=== PATIENT | male | born 1990 | race African-American/Black ===

== ENCOUNTER 2021-07-27 21:27 | Inpatient (IN) | payer MEDICAID, SELFPAY ==
[~2021-07-27] VITALS: Ht 180.3 cm; Wt 90.7 kg
[2021-07-27 21:28] VITALS: BP 98/68
--- NOTE | 2021-07-27 21:30 | NUR ---
BIBA PADILLAH C/O WEAKNESS, NAUSEA, NECK PAIN FOR 2 DAYS.RECENTLY DX WIT PNEUMONIA. PT DENIES PAIN. C/O WEAKNESS. ATTACHED TO CM = SR. O2 SAT = 98%
--- NOTE | 2021-07-27 21:31 | NUR ---
PT LEYLA ALS. TAKEN TO BED 1
--- NOTE | 2021-07-27 22:08 | NUR ---
DR WERNER AT BEDSIDE FOR EXAM
--- NOTE | 2021-07-27 22:45 | NUR ---
CONSENT FOR CT ANGIO OBTAINED
[2021-07-27 23:06] LABS: BASOPHILS % (AUTO) 0.8 % (0.0-2.0); EOSINOPHILS % (AUTO) 0.9 % (0.0-4.0); HEMOGLOBIN 16.1 g/dL (12.0-18.0); LYMPHOCYTES # (AUTO) 1.6 K/uL (2.0-11.5); LYMPHOCYTES % (AUTO) 33.8 % (20.5-51.1); MEAN CORPUSCULAR HEMOGLOBIN 28 pg (27-31); MEAN CORPUSCULAR HGB CONC 34 g/dL (33-37); MEAN CORPUSCULAR VOLUME 84.5 fL (80-94); MONOCYTES # (AUTO) 0.5 K/uL (0.8-1.0); MONOCYTES % (AUTO) 9.8 % (1.7-9.3); NEUTROPHILS # (AUTO) 2.6 K/uL (1.8-7.7); NEUTROPHILS % (AUTO) 54.7 % (42.2-75.2); PLATELET COUNT (AUTO) 263 K/uL (140-450); RED BLOOD CELL COUNT(AUTO) 5.69 MIL/uL (4.20-6.10); RED CELL DISTRIBUTION WIDTH 14.6 % (11.6-13.7); WHITE BLOOD COUNT (AUTO) 4.8 K/uL (4.8-10.8)
--- NOTE | 2021-07-27 23:14 | NUR ---
NICOLAS SWAB OBTAINED AND SENT TO LAB
[2021-07-27 23:31] LABS: ALBUMIN 3.1 g/dL (3.4-5.0); ANION GAP 16.2 (8-16); CARBON DIOXIDE 23.9 mmol/L (21-32); CREATININE 1.9 mg/dL (0.6-1.3); POTASSIUM 4.1 mmol/L (3.5-5.1); TOTAL BILIRUBIN 0.9 mg/dL (0.0-1.0)
--- NOTE | 2021-07-27 23:42 | NUR ---
UA OBTAINED AND SENT TO LAB
[2021-07-27] MEDS ORDERED: FUROSEMIDE 40 MG/4 ML VIAL IVP ONE (23:50)
[2021-07-27 23:54] LABS: BLOOD, URINE 2+ (NEGATIVE); COLOR,URINE YELLOW (YELLOW); UGLUCOSE 2+ (NEGATIVE)
[2021-07-28 00:07] LABS: RBC,URINE 20-50 /HPF (0-5); WBC,URINE 20-60 /HPF (0-5)
[2021-07-28 00:10] LABS: CREATINE KINASE MB 1.5 ng/mL (0-3.6)
--- NOTE | 2021-07-28 00:36 | NUR ---
CT ANGIO CANCELLED DUE TO CREAT
--- NOTE | 2021-07-28 00:46 | NUR ---
US IN PROGRESS
--- NOTE | 2021-07-28 01:21 | NUR ---
REPORT CALLED TO ORTEGA SAUNDERS
[2021-07-28 01:50] VITALS: BP 102/76
--- NOTE | 2021-07-28 01:50 | NUR ---
PATIENT ADMITTED TO ROOM 105B VIA GURNEY FROM ER. PATIENT AWAKE, ALERT, OX4. PAIN TO RIGHT SHOULDER/NECK AREA PINCHING IN SENSATION. ON RA, SATURATION 98%, ST 105, LUNGS SOUND CLEAR, BOWEL SOUNDS PRESENT, VOIDING, AMBULATING TO BATHROOM. SKIN INTACT. LEFT AC 20G SALINE LOCKED. CARDIAC DIET. SANDWICH AND JUICE GIVEN TO PATIENT. ORIENTED TO ROOM, CALL LIGHT, SAFETY PRECAUTIONS. WILL CONTINUE TO MONITOR.
[2021-07-28] MEDS ORDERED: SACU1TAB PO (02:07)
[2021-07-28] MEDS ORDERED: FURO-572 PO (02:07)
--- NOTE | 2021-07-28 03:30 | NUR ---
PT ASLEEP.BREATHING EQUAL AND UNLABORED. NO S/SX OF DISTRESS NOTED.WILL CONTINUE TO MONITOR.
[2021-07-28 04:00] VITALS: BP 93/61
--- NOTE | 2021-07-28 05:23 | NUR ---
PROVIDED SOME JELLO'S AND ICE CHIPS. NO DISTRESS NOTED. CALL LIGHT WITHIN REACH. WILL CONTINUE TO MONITOR.
--- NOTE | 2021-07-28 07:12 | NUR ---
ENDORSED TO AM SHIFT NURSE FOR CONTINUITY OF CARE. PT IS STABLE.
--- NOTE | 2021-07-28 07:40 | NUR ---
Patient c/o 12/12 pain to left shoulder, requesting pain medication. Offered warm compress to aleviate pain. Patient declined. Dr. Fatemeh smiht and awaiting reply. Addendum: 07/28/21 at 0801 by Kimberley Fuentes RN Correction: patient c/o right should pain, not left shoulder. Pt in no distress, resting calmly in bed. Instructed to avoid excessive movement to avoid aggravating pain.
--- NOTE | 2021-07-28 07:55 | NUR ---
Received call back from Dr. Weldon and notified of pt c/o right shoulder pain 12/12. New order received for [place]. Order noted and carried out.
[2021-07-28 08:00] VITALS: BP 111/34
[2021-07-28] MEDS: HYDROcodone/APAP 5/325 MG 1 TAB TAB PO PRN (08:24)
[2021-07-28] MEDS ORDERED: DOCUSATE SODIUM 100 MG GELCAP PO PRN (09:10)
[2021-07-28] MEDS ORDERED: HYDROcodone/APAP 7.5/325 MG 1 TAB PO PRN (09:10)
[2021-07-28] MEDS ORDERED: FUROSEMIDE 20 MG TAB PO SCH (09:10)
[2021-07-28] MEDS ORDERED: ONDANSETRON 4 MG/2 ML VIAL IM/IVP PRN (09:10)
[2021-07-28] MEDS ORDERED: ACETAMINOPHEN 325 MG TAB PO PRN (09:10)
[2021-07-28] MEDS ORDERED: ZOLPIDEM 5 MG TAB PO PRN (09:10)
[2021-07-28] MEDS ORDERED: POTASSIUM CHLORIDE 10 MEQ TABER PO PRN (09:10)
[2021-07-28] MEDS ORDERED: guaiFENesin DM 200/20 MG-10 ML 10 ML UDC PO PRN (09:10)
[2021-07-28 09:50] LABS: CHOL/HDL RATIO 4.9 (1-4.5); FREE T4 (FREE THYROXINE) 1.23 ng/dL (0.76-1.46); PHOSPHORUS 5.1 mg/dL (2.5-4.9); THYROID STIMULATING HORMONE 4.13 uIU/mL (0.34-3.74)
[2021-07-28 09:55] LABS: PROTHROMBIN TIME 13.6 secs (10.8-13.4)
[2021-07-28] MEDS ORDERED: LORazepam 1 MG TAB PO PRN (11:15)
[2021-07-28 12:00] VITALS: BP 112/77
--- NOTE | 2021-07-28 12:00 | NUR ---
Lunch tray held due to abd US scheduled. Informed patient to remain NPO until abd US is done. Patient verbalized understanding and agree with care plan.
[2021-07-28] MEDS: FUROSEMIDE 40 MG/4 ML VIAL IVP SCH ×2 (15:17→20:20)
[2021-07-28 16:00] VITALS: BP 124/77
--- NOTE | 2021-07-28 16:30 | NUR ---
Kaley US completed. Patient provided with turkey sandwich.
--- NOTE | 2021-07-28 19:20 | NUR ---
Report given to pm nurse.
--- NOTE | 2021-07-28 19:21 | NUR ---
RECEIVED REPORT FROM AM NURSE. PATIENT AAOX4 ON ROOM AIR. NO ACUTE DISTRESS NOTED. BREATHING EVEN UNLABORED. SAFETY MEASURES IN PLACE. CALL LIGHT WITHIN REACH. NO COMPLAINTS OF PAIN. ABLE TO AMBULATE TO THE RESTROOM WITHOUT ASSISTANCE.
[2021-07-28 19:36] LABS: APPEARANCE,URINE CLEAR (CLEAR)
[2021-07-28 19:37] LABS: BILIRUBIN,URINE 1+ (NEGATIVE); NITRITE, URINE NEGATIVE (NEGATIVE)
[2021-07-28 19:38] LABS: LEUKOCYTE ESTERASE ,URINE 1+ (NEGATIVE)
[2021-07-28 20:00] VITALS: BP 126/66
--- NOTE | 2021-07-28 20:20 | NUR ---
SCHEDULED LASIX ADMINISTERED ORDERED.
[2021-07-28 20:31] LABS: BARBITURATE, URINE NEGATIVE ng/ml (NEG <=200); BENZODIAZEPINE, URINE POSITIVE ng/mL (NEG <=200); CANNABINOID, URINE NEGATIVE ng/mL (NEG <=50); COCAINE, URINE NEGATIVE ng/mL (NEG <=300); OPIATE, URINE NEGATIVE ng/mL (NEG <=2000); PHENCYCLIDINE SCREEN,URINE NEGATIVE ng/mL (NEG <=25)
[2021-07-28] MEDS ORDERED: FUROSEMIDE 20 MG/2 ML VIAL IVP SCH (21:00)
--- NOTE | 2021-07-28 22:05 | NUR ---
PROVIDED ICE CHIPS. CARLOS STERN.
[2021-07-29] VITALS: BP 116/83
[2021-07-29 04:00] VITALS: BP 109/67
[2021-07-29] MEDS: FUROSEMIDE 40 MG/4 ML VIAL IVP SCH ×3 (04:29→20:54)
--- NOTE | 2021-07-29 04:29 | NUR ---
Administered scheduled medication as ordered.
--- NOTE | 2021-07-29 07:13 | NUR ---
PATIENT HAS BEEN SCREENED AND CATEGORIZED MODERATE NUTRITION RISK. PATIENT WILL BE SEEN WITHIN 3-5 DAYS OF ADMISSION. 07/30/21-08/01/21 BAL [facility] MS, RDN
--- NOTE | 2021-07-29 07:32 | NUR ---
PATIENT WAS ENDORSED TO AM NURSE IN STABLE CONDITION.
--- NOTE | 2021-07-29 07:33 | NUR ---
RECEIVED BEDSIDE REPORT FROM RADIOISOTOPE TECHNICIAN NURSE FOR CONTINUITY OF CARE. PT IS SLEEPING. BREATHING IS EVEN AND UNLABORED. NO SIGNS OF DISTRESS NOTED. PT IV IS PATENT AND INTACT. ON RA. PT IS STABLE.
[2021-07-29 07:34] LABS: BASOPHILS % (AUTO) 0.9 % (0.0-2.0); EOSINOPHILS # (AUTO) 0.1 K/uL (0-0.4); EOSINOPHILS % (AUTO) 1.1 % (0.0-4.0); HEMOGLOBIN 16.6 g/dL (12.0-18.0); LYMPHOCYTES % (AUTO) 42.5 % (20.5-51.1); MEAN CORPUSCULAR HEMOGLOBIN 28 pg (27-31); MEAN CORPUSCULAR HGB CONC 33 g/dL (33-37); MEAN CORPUSCULAR VOLUME 85.2 fL (80-94); MONOCYTES # (AUTO) 0.5 K/uL (0.8-1.0); MONOCYTES % (AUTO) 9.9 % (1.7-9.3); NEUTROPHILS # (AUTO) 2.2 K/uL (1.8-7.7); NEUTROPHILS % (AUTO) 45.6 % (42.2-75.2); PLATELET COUNT (AUTO) 259 K/uL (140-450); RED BLOOD CELL COUNT(AUTO) 5.87 MIL/uL (4.20-6.10); RED CELL DISTRIBUTION WIDTH 15.1 % (11.6-13.7); WHITE BLOOD COUNT (AUTO) 4.8 K/uL (4.8-10.8)
[2021-07-29 07:41] LABS: ANION GAP 12.8 (8-16); CARBON DIOXIDE 28.2 mmol/L (21-32); CREATININE 1.7 mg/dL (0.6-1.3)
[2021-07-29 08:00] VITALS: BP 111/78
[2021-07-29] MEDS: PANTOPRAZOLE 40 MG TABEC PO SCH (09:00)
[2021-07-29 12:00] VITALS: BP 95/67
[2021-07-29] MEDS: HYDROcodone/APAP 5/325 MG 1 TAB TAB PO PRN (12:51)
--- NOTE | 2021-07-29 12:51 | NUR ---
GAVE PAIN MED PER MD ORDER FOR PAIN OF 8/10 PER PT STATEMENT. PT IS STABLE.
[2021-07-29 16:00] VITALS: BP 99/69
--- NOTE | 2021-07-29 19:30 | NUR ---
ENDORSED TO C SOFTWARE DEVELOPER NURSE FOR CONTINUITY OF CARE. POC DISCUSSED.
--- NOTE | 2021-07-29 19:31 | NUR ---
RECEIVED REPORT FROM AM NURSE FOR CONTINUITY OF CARE. PATIENT IS UP SITTING ON THE CHAIR AT BEDSIDE ON ROOM AIR. NO SOB NOTED. CALL LIGHT WITHIN REACH. NO COMPLAINTS OF PAIN. SKIN WARM AND DRY TO THE TOUCH. AFEBRILE.
--- NOTE | 2021-07-29 20:54 | NUR ---
Lasix given as scheduled.
[2021-07-29 21:31] VITALS: BP 103/56
[2021-07-30] VITALS: BP 96/63
[2021-07-30 04:00] VITALS: BP 109/70
[2021-07-30] MEDS: FUROSEMIDE 40 MG/4 ML VIAL IVP SCH (05:22)
[2021-07-30 06:49] LABS: ANION GAP 13.7 (8-16); CREATININE 1.6 mg/dL (0.6-1.3); POTASSIUM 3.7 mmol/L (3.5-5.1)
[2021-07-30 06:50] LABS: BASOPHILS % (AUTO) 0.9 % (0.0-2.0); EOSINOPHILS # (AUTO) 0.1 K/uL (0-0.4); EOSINOPHILS % (AUTO) 2.1 % (0.0-4.0); HEMATOCRIT 47.5 % (36-52); HEMOGLOBIN 16.1 g/dL (12.0-18.0); LYMPHOCYTES # (AUTO) 1.9 K/uL (2.0-11.5); LYMPHOCYTES % (AUTO) 53.4 % (20.5-51.1); MEAN CORPUSCULAR HEMOGLOBIN 28 pg (27-31); MEAN CORPUSCULAR HGB CONC 34 g/dL (33-37); MEAN CORPUSCULAR VOLUME 83.9 fL (80-94); MONOCYTES # (AUTO) 0.3 K/uL (0.8-1.0); MONOCYTES % (AUTO) 9.6 % (1.7-9.3); NEUTROPHILS # (AUTO) 1.2 K/uL (1.8-7.7); PLATELET COUNT (AUTO) 258 K/uL (140-450); RED BLOOD CELL COUNT(AUTO) 5.66 MIL/uL (4.20-6.10); RED CELL DISTRIBUTION WIDTH 14.2 % (11.6-13.7); WHITE BLOOD COUNT (AUTO) 3.6 K/uL (4.8-10.8)
--- NOTE | 2021-07-30 07:25 | NUR ---
ENDORSED TO AM NURSE FOR CONTINUITY OF CARE. PT IS STABLE.
--- NOTE | 2021-07-30 07:55 | NUR ---
07/30/2021 RECEIVED ENDORSEMENT FROM PM SHIFT NURSE. PT STABLE AT THIS TIME, PIV AT LAC 20G PATENT. WILL CONTINUE TO MONITOR.
[2021-07-30 08:00] VITALS: BP 110/77
[2021-07-30] MEDS: PANTOPRAZOLE 40 MG TABEC PO SCH (08:54)
[2021-07-30] MEDS ORDERED: FURO-572 PO (09:53)
[2021-07-30] MEDS ORDERED: CEPH-588 PO (09:53)
[2021-07-30] MEDS ORDERED: SACU1TAB PO (09:53)
[2021-07-30 11:50] VITALS: BP 110/77
[2021-07-30 12:00] VITALS: BP 97/63
--- NOTE | 2021-07-30 13:15 | NUR ---
PT DISCHARGE HOME WITH FAMILY W. STABLE CONDITION. NO ACUTE RESPIRATORY DISTRESS NOTED. PIV CATHETER REMOVED W/ TIP INTACT.
[2021-07-30] MEDS ORDERED: FUROSEMIDE 40 MG TAB PO SCH (17:00)
[2021-07-31] MEDS ORDERED: POTASSIUM CHLORIDE 10 MEQ TABER PO SCH (09:00)
== END 2021-07-30 13:10 | disposition home or self-care (01) | DRG 194 ==
LOC: MED 21:27 → MTU 07-28 00:45
PROVIDERS: ADMIT Family Medicine; ATTEND Family Medicine
DX: I13.0 Hypertensive heart and chronic kidney disease with heart failure and stage 1 through stage 4 chronic kidney disease, or unspecified chronic kidney disease (principal); N17.0 Acute kidney failure with tubular necrosis; J96.01 Acute respiratory failure with hypoxia; E44.0 Moderate protein-calorie malnutrition; I27.20 Pulmonary hypertension, unspecified; U09.9 Post COVID-19 condition, unspecified; I50.43 Acute on chronic combined systolic (congestive) and diastolic (congestive) heart failure; Z20.822 Contact with and (suspected) exposure to COVID-19; B33.24 Viral cardiomyopathy; R74.01 Elevation of levels of liver transaminase levels; E78.2 Mixed hyperlipidemia; J44.9 Chronic obstructive pulmonary disease, unspecified; I08.1 Rheumatic disorders of both mitral and tricuspid valves; I42.0 Dilated cardiomyopathy; F15.10 Other stimulant abuse, uncomplicated; M25.511 Pain in right shoulder; N18.9 Chronic kidney disease, unspecified; Z82.49 Family history of ischemic heart disease and other diseases of the circulatory system; Z68.27 Body mass index [BMI] 27.0-27.9, adult; Z79.899 Other long term (current) drug therapy; Z87.891 Personal history of nicotine dependence
CPT/HCPCS: 36415; 71045; 73030; 76700; 80048; 80053; 80305; 81001; 82150; 82550; 82553; 83036; 83690; 83735; 83880; 84100; 84300; 84436; 84439; 84443; 84479; 84484; 85025; 85610; 85730; 87081; 87086; 93005; 93970; 96374; 99285; J0696; J1940; J7060; Q0092

== ENCOUNTER 2021-08-07 00:44 | Inpatient (IN) | payer MEDICAID, SELFPAY ==
[~2021-08-07] VITALS: Ht 180.3 cm; Wt 99.8 kg
[~2021-08-07 00:44] MED LIST: CEPH-588 PO; FURO-572 PO; SACU1TAB PO
[2021-08-07 00:55] VITALS: BP 145/110
--- NOTE | 2021-08-07 01:01 | NUR ---
PT AMBULATORY TO BED 11 W STEADY GAIT.
--- NOTE | 2021-08-07 01:04 | NUR ---
Dr. Sullivan at bedside to exam patient.
[2021-08-07] MEDS ORDERED: ASPIRIN 325 MG TAB PO ONE (01:05)
[2021-08-07] MEDS ORDERED: MORPHINE SULFATE 4 MG/ML SYR IVP ONE (01:05)
[2021-08-07] MEDS ORDERED: lisinopriL 20 MG TAB PO ONE (01:05)
[2021-08-07] MEDS ORDERED: NITROGLYCERIN 2% 1 GM PKT TP ONE (01:05)
--- NOTE | 2021-08-07 01:05 | NUR ---
PT REPORTS UNABLE TO PROVIDE URINE AT THIS TIME.
[2021-08-07 01:22] LABS: BASOPHILS # (AUTO) 0.1 K/uL (0.00-0.22); BASOPHILS % (AUTO) 1.3 % (0.0-2.0); EOSINOPHILS # (AUTO) 0.1 K/uL (0-0.4); EOSINOPHILS % (AUTO) 1.7 % (0.0-4.0); HEMATOCRIT 51.4 % (36-52); HEMOGLOBIN 17.2 g/dL (12.0-18.0); LYMPHOCYTES # (AUTO) 2.6 K/uL (2.0-11.5); LYMPHOCYTES % (AUTO) 49.3 % (20.5-51.1); MEAN CORPUSCULAR HEMOGLOBIN 28 pg (27-31); MEAN CORPUSCULAR HGB CONC 34 g/dL (33-37); MEAN CORPUSCULAR VOLUME 84.6 fL (80-94); MONOCYTES # (AUTO) 0.4 K/uL (0.8-1.0); MONOCYTES % (AUTO) 8.2 % (1.7-9.3); NEUTROPHILS # (AUTO) 2.1 K/uL (1.8-7.7); NEUTROPHILS % (AUTO) 39.5 % (42.2-75.2); PLATELET COUNT (AUTO) 215 K/uL (140-450); RED BLOOD CELL COUNT(AUTO) 6.08 MIL/uL (4.20-6.10); WHITE BLOOD COUNT (AUTO) 5.2 K/uL (4.8-10.8)
--- NOTE | 2021-08-07 01:34 | NUR ---
CXR at bedside,
--- NOTE | 2021-08-07 01:36 | NUR ---
ADMINISTERED PO MEDS PER MD ORDER. TOLERATED WELL.
[2021-08-07 01:46] LABS: ALBUMIN 3.1 g/dL (3.4-5.0); CREATININE 2.2 mg/dL (0.6-1.3); TOTAL BILIRUBIN 0.8 mg/dL (0.0-1.0)
[2021-08-07] MEDS ORDERED: FUROSEMIDE 40 MG/4 ML VIAL IVP SCH (03:20)
--- NOTE | 2021-08-07 03:38 | NUR ---
Pt asleep. Pt arousable. Pt updated w/ plan of care. Pt receptive to info. Pt noted w/ 02 sat 91-94. Placed pt on 2L NC. 02 sat >95% now.
[2021-08-07] MEDS ORDERED: SACU1TAB PO (04:27)
--- NOTE | 2021-08-07 04:45 | NUR ---
Pt asleep. No acute distress. Breathing easy and unlabored. Informed pt and administered lasiks 20mg IVP without event. Attempted to obtain urine, however, pt states, "I can't pee". Urinal at bedside.
--- NOTE | 2021-08-07 06:02 | NUR ---
Obtained ~200mL concentrated urine via urinal and sent to lab.
--- NOTE | 2021-08-07 07:20 | NUR ---
RECEIVED REPORT FROM ELMA RN, TRANSFER OF CARE AT THIS TIME. PT DENIES CHEST PAIN, RESTING IN BED AT THIS TIME, ON DELINQUENT ACCOUNT CLERK. RESPIRATIONS EVEN AND UNLABORED, 99% ON 2LPM NC. A/OX4, NO SIGNS OF DISTRESS NOTED.
[2021-08-07 07:24] LABS: BARBITURATE, URINE NEGATIVE ng/ml (NEG <=200); BENZODIAZEPINE, URINE NEGATIVE ng/mL (NEG <=200); CANNABINOID, URINE NEGATIVE ng/mL (NEG <=50); COCAINE, URINE NEGATIVE ng/mL (NEG <=300); OPIATE, URINE POSITIVE ng/mL (NEG <=2000); PHENCYCLIDINE SCREEN,URINE NEGATIVE ng/mL (NEG <=25)
--- NOTE | 2021-08-07 08:17 | NUR ---
Patient will be admitted to care of LESTER TOLENTINO. Admited to TELEMETRY. Will go to room 125B. Belongings list completed. Report to winsome hung.
--- NOTE | 2021-08-07 09:47 | NUR ---
RECEIVED ENDORSEMENT FROM ER NURSE; PT STABLE W/ PIV SALINE LOCK AT MERGED WITH [facility] PATENT. PT IS OBSERVATION STATUS DUE CHEST PAIN MAYBE FROM CHF EXACERBATION. WILL CONTINUE TO MONITOR
[2021-08-07 12:00] VITALS: BP 100/72
[2021-08-07 12:39] LABS: APPEARANCE,URINE CLEAR (CLEAR); BILIRUBIN,URINE NEGATIVE (NEGATIVE); BLOOD, URINE TRACE-I (NEGATIVE); COLOR,URINE YELLOW (YELLOW); LEUKOCYTE ESTERASE ,URINE 1+ (NEGATIVE); NITRITE, URINE NEGATIVE (NEGATIVE); UGLUCOSE 1+ (NEGATIVE)
[2021-08-07 13:08] LABS: RBC,URINE 0-5 /HPF (0-5); TRICHOMONAS,URINE None Seen /HPF (None Seen); YEAST,URINE None Seen /HPF (None Seen)
[2021-08-07 13:09] LABS: CALCIUM OXALATE CRYSTALS,UR None Seen /HPF (None Seen); COARSE GRANULAR CASTS,URINE None Seen /LPF (None Seen); FINE GRANULAR CASTS,URINE None Seen /LPF (None Seen); HYALINE CASTS, URINE 0-10 /LPF (None Seen); OTHER CASTS, URINE None Seen /LPF (None Seen); OTHER CRYSTALS,URINE None Seen /HPF (None Seen); RED BLOOD CELL CASTS,URINE None Seen /LPF (None Seen); TRIPLE PHOSPHATE CRYSTAL,UR None Seen /HPF (None Seen); URIC ACID CRYSTALS,URINE None Seen /HPF (None Seen); URINE AMORPHOUS URATE None Seen /HPF (None Seen); WAXY CASTS,URINE None Seen /LPF (None Seen)
[2021-08-07 16:00] VITALS: BP 96/69
--- NOTE | 2021-08-07 16:22 | NUR ---
PATIENT HAS BEEN SCREENED AND CATEGORIZED MODERATE NUTRITION RISK. PATIENT WILL BE SEEN WITHIN 3-5 DAYS OF ADMISSION. [address]ATSHE[address] JIM[address]NE[address] RD
[2021-08-07] MEDS ORDERED: POTASSIUM CHLORIDE 10 MEQ TABER PO PRN (19:40)
[2021-08-07] MEDS ORDERED: ACETAMINOPHEN 325 MG TAB PO PRN (19:40)
[2021-08-07] MEDS ORDERED: guaiFENesin DM 200/20 MG-10 ML 10 ML UDC PO PRN (19:40)
[2021-08-07] MEDS ORDERED: ONDANSETRON 4 MG/2 ML VIAL IM/IVP PRN (19:40)
[2021-08-07] MEDS ORDERED: DOCUSATE SODIUM 100 MG GELCAP PO PRN (19:40)
[2021-08-07] MEDS ORDERED: ZOLPIDEM 5 MG TAB PO PRN (19:40)
--- NOTE | 2021-08-07 19:46 | NUR ---
ENDORSE PT TO PM SHIFT NURSE WITH STABLE CONDITION. LAC SALINE LOCK INTACT.
[2021-08-07] MEDS: NACL 0.9% 1,000 ML IV SCH (19:50)
[2021-08-07 20:00] VITALS: BP 96/69
--- NOTE | 2021-08-07 21:30 | NUR ---
BP RE CHECK - 90 / 58 - NO COMPLAIN MADE - WILL CONT. TO [id number] .
[2021-08-07] MEDS: HYDROcodone/APAP 7.5/325 MG 1 TAB PO PRN (21:46)
[2021-08-07] MEDS: FUROSEMIDE 20 MG/2 ML VIAL IVP SCH (22:00)
[2021-08-07] MEDS: cephALEXin 500 MG CAP PO SCH (22:00)
[2021-08-07 22:49] LABS: PROTHROMBIN TIME 12.7 secs (10.8-13.4)
--- NOTE | 2021-08-07 23:00 | NUR ---
BP RE CHECK - 90 /60 - RESTING ON BED , WATCHING MOVIE - ON TELE MONITOR .
[2021-08-07 23:32] LABS: CHOL/HDL RATIO 5.6 (1-4.5); MAGNESIUM 2.1 mg/dL (1.8-2.4)
[2021-08-07 23:33] LABS: FREE T4 (FREE THYROXINE) 0.94 ng/dL (0.76-1.46); THYROID STIMULATING HORMONE 1.5 uIU/mL (0.34-3.74)
[2021-08-08] VITALS: BP 100/60
--- NOTE | 2021-08-08 | NUR ---
ROUNDS , BP RE CHECK - 100/60 , ON TELE MONITOR- NO COMPLAIN AT THIS TIME , O2 SAT 99 % , CALL LIGHT WITHIN REACH . WILL CONT. TO MONITOR
--- NOTE | 2021-08-08 02:00 | NUR ---
SLEEPING - ON TELE MONITOR - WILL CONT. TO MONITOR .
[2021-08-08 04:00] VITALS: BP 99/60
--- NOTE | 2021-08-08 04:00 | NUR ---
ANABELLA , ON TELE MONITOR . O2 SAT 97 % . Addendum: 08/08/21 at 0803 by Magalys Nieves RN AWAKE .
--- NOTE | 2021-08-08 04:50 | NUR ---
ANSWER THE CALL LIGHT - C/O FOOT PAIN , BUT DENIES CHEST PAIN - WILL MEDICATE - ON TELE MONITOR . CALL LIGHT WITHIN REACH .
[2021-08-08] MEDS: HYDROcodone/APAP 7.5/325 MG 1 TAB PO PRN ×4 (05:21→21:49)
--- NOTE | 2021-08-08 06:00 | NUR ---
ROUNDS , PT REFUSED TO O2 INH . - O2 SAT 96 TO 95 % - ON RA - WILL INFORM RT .
[2021-08-08 07:20] LABS: BASOPHILS # (AUTO) 0.1 K/uL (0.00-0.22); EOSINOPHILS # (AUTO) 0.1 K/uL (0-0.4); EOSINOPHILS % (AUTO) 2.4 % (0.0-4.0); HEMATOCRIT 46.7 % (36-52); HEMOGLOBIN 15.4 g/dL (12.0-18.0); LYMPHOCYTES # (AUTO) 1.9 K/uL (2.0-11.5); LYMPHOCYTES % (AUTO) 54.4 % (20.5-51.1); MEAN CORPUSCULAR HEMOGLOBIN 28 pg (27-31); MEAN CORPUSCULAR HGB CONC 33 g/dL (33-37); MEAN CORPUSCULAR VOLUME 85.3 fL (80-94); MONOCYTES # (AUTO) 0.3 K/uL (0.8-1.0); MONOCYTES % (AUTO) 8.7 % (1.7-9.3); NEUTROPHILS # (AUTO) 1.1 K/uL (1.8-7.7); NEUTROPHILS % (AUTO) 32.5 % (42.2-75.2); PLATELET COUNT (AUTO) 167 K/uL (140-450); RED BLOOD CELL COUNT(AUTO) 5.47 MIL/uL (4.20-6.10); RED CELL DISTRIBUTION WIDTH 15.1 % (11.6-13.7); WHITE BLOOD COUNT (AUTO) 3.5 K/uL (4.8-10.8)
--- NOTE | 2021-08-08 07:30 | NUR ---
INFORMED RT PT. REFUSED O2 INH . - BUT I HOOK THE PT ON O2 SAT MONITORING - 95 % - 96 % - ON RA - ENDORSED TO RHYS . INFORMED PT IF HE FEEL SOB - HIT THE CALL LIGHT AT ONCE - PT. VERBALIZES UNDERSTANDING - CALL LIGHT WITHIN REACH .
--- NOTE | 2021-08-08 07:31 | NUR ---
ENDORSED - PT - STABLE . ON TELE MONITOR . CALL LIGHT WITHIN REACH .
--- NOTE | 2021-08-08 07:32 | NUR ---
RECEIVED REPORT FROM REWRITE EDITOR NURSE. PATIENT LYING DOWN IN BED SLEEPING, AROUSABLE BY VOICE. NO DISTRESS NOTED. DENIES ANY PAIN. ON ROOM AIR WITH O2 SAT 99%. AAOX3, CALM, COOPERATIVE, SKIN INTACT. IV SITE INTACT, PATENT, AND INFUSING IVF PER MD ORDERS. REVIEWED PLAN OF CARE WITH PATIENT. REINFORCEMENT NEEDED. SAFETY MEASURES IN PLACE, CALL LIGHT WITHIN REACH. WILL CONTINUE TO MONITOR.
[2021-08-08 08:00] VITALS: BP 112/65
[2021-08-08 09:14] LABS: ANION GAP 13.6 (8-16); CARBON DIOXIDE 27.4 mmol/L (21-32); CREATININE 1.9 mg/dL (0.6-1.3)
[2021-08-08] MEDS: PANTOPRAZOLE 40 MG TABEC PO SCH (09:21)
[2021-08-08] MEDS: cephALEXin 500 MG CAP PO SCH (09:22)
[2021-08-08] MEDS: FUROSEMIDE 20 MG/2 ML VIAL IVP SCH (09:22)
--- NOTE | 2021-08-08 09:22 | NUR ---
SCHEDULED MEDICATIONS DUE GIVEN. WILL CONTINUE TO MONITOR.
--- NOTE | 2021-08-08 09:37 | NUR ---
COMPLAINS OF SHOULDER PAIN, NORCO GIVEN AT THIS TIME. WILL CONTINUE TO MONITOR.
[2021-08-08 12:00] VITALS: BP 110/74
[2021-08-08] MEDS: NACL 0.9% 1,000 ML IV SCH (12:20)
--- NOTE | 2021-08-08 13:00 | NUR ---
PATIENT LYING DOWN WATCHING TV. NO DISTRESS NOTED. DENIES PAIN. WILL CONTINUE TO MONITOR .
[2021-08-08 16:00] VITALS: BP 132/90
[2021-08-08] MEDS: FUROSEMIDE 40 MG/4 ML VIAL IVP SCH (16:14)
--- NOTE | 2021-08-08 16:19 | NUR ---
DC PLANNIN YRS OLD MALE PATIENT WAS ADMITTED FROM HOME WITH A DX OF ISCHEMIC CARDIOMYOPATHY. 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 RAPID COVID TEST NEGATIVE. O2 2L/NC SATING. ADMINISTERED IVF IV LASIX. CONSULTED WITH CARDIO. DC PLAN TO GO HOME WHEN STABLE. CM TO FOLLOW Addendum: 08/09/21 at 1617 by Mary Morales RN DC PLANNING: PT HAS ESBL OF THE URINE , ON MEROPENEM IV . CARDIOLOGY FOLLOW UP DC PLAN TO GO HOME WITH HOME HEALTH FOR IV ABX. CM TO FOLLOW Addendum: 08/10/21 at 1452 by Mary Morales RN DC PLANNING: PATIENT STATED WILL FOLLOW UP WITH DR GONZALEZ AT THIS OFFICE, PT WILL CALL TO MAKE APPOINTMENT. CM TO FOLLOW
--- NOTE | 2021-08-08 16:19 | NUR ---
COMPLAINS OF PAIN, NORCO GIVEN AT THIS TIME. OTHER SCHEDULED MEDICATIONS DUE GIVEN. WILL CONTINUE TO MONITOR.
--- NOTE | 2021-08-08 18:00 | NUR ---
PATIENT SITTING IN BED TALKING ON THE PHONE. NO DISTRESS NOTED. WILL CONTINUE OT MONITOR.
--- NOTE | 2021-08-08 19:20 | NUR ---
RECEIVED REPORT FROM MORNING SHIFT NURSE. PATIENT AWAKE AND ALERT. BREATHING EVEN AND UNLABORED ON 2 L/NC WITH HUMIDIFIER. NO COMPLAINTS AT THIS TIME. WILL CONTINUE TO MONITOR PATIENT.
--- NOTE | 2021-08-08 19:30 | NUR ---
GAVE REPORT TO PROCESSING ANALYST NURSE. PATIENT IN STABLE. CONDITION.
[2021-08-08] MEDS: MEROPENEM 1,000 MG in NACL 0.9% 50 ML IV SCH (21:50)
[2021-08-09] VITALS: BP 115/74
--- NOTE | 2021-08-09 | NUR ---
SNACKS GIVEN REQUESTED BY PATIENT. NO UNTOWARD S/SX OBSERVED. CALL LIGHT WITHIN REACH. ADVISED TO CALL FOR FURTHER NEEDS.
--- NOTE | 2021-08-09 06:17 | NUR ---
NEW IV SITE INSERTED ON LEFT FOREARM G 22, PATIENT TOLERATED IT WELL. PREVIOUS IV DISCONTINUED, TIP INTACT. Addendum: 08/09/21 at 0620 by Kori Greco RN NOTE ENTERED ON WRONG PATIENT.
--- NOTE | 2021-08-09 07:30 | NUR ---
RECEIVED BEDSIDE REPORT FROM DISTRIBUTION ENGINEERING TECHNOLOGIST NURSE FOR CONTINUITY. PT IS AWAKE AND ALERT. A&OX4. ON RA WITH BREATHING UNLABORED. AMBULATORY INDEPENDENTLY. SKIN IS WARM, DRY, AND INTACT. IV IS IN THE LEFT AC 18 G SALINE LOCKED. PT IS STABLE. DENIES ANY CHEST PAIN. PLAN OF CARE DISCUSSED.
[2021-08-09 08:00] VITALS: BP 103/69
[2021-08-09] MEDS: FUROSEMIDE 40 MG/4 ML VIAL IVP SCH ×2 (09:04→17:39)
[2021-08-09] MEDS: PANTOPRAZOLE 40 MG TABEC PO SCH (09:05)
[2021-08-09] MEDS: MEROPENEM 1,000 MG in NACL 0.9% 50 ML IV SCH ×2 (09:07→22:03)
--- NOTE | 2021-08-09 12:21 | NUR ---
HI PLANNING PATIENT IS A 30 YR OLD MALE WHO PRESENTED [facility]/ED ON 08/07/21 FOR CHEST PAIN. CLIENT HAS A HX OF CHF SECONDARY TO METH USE AND ISCHEMIC CARDIOMYOPATHY. SW MET WITH CLIENT AT BEDSIDE FOR THE PURPOSE OF DISCUSSING AND GATHERING COLLATERAL INFORMATION. PATIENT REPORTS LIVING AT HOME WITH MOTHER. PATIENT IDENTIFIES EMERGENCY CONTACT AND MEDICAL DECISION MAKER DORIAN DUBOIS . SW INQUIRED ON A.D, PATIENT DECLINED CURRENTLY HAVING ONE IN PLACE. SW PROVIDED PATIENT WITH EDUCATION ON A.D AND ENCOURAGED PATIENT TO SPEAK WITH [employer] ABOUT DECISION. PATIENT WAS UNDERSTANDING AND RECEPTIVE AND ACCEPTED A.D PACKET PROVIDED BY SW. PATIENT REPORTS ADEQUATE FRIEND AND FAMILY SUPPORT. PATIENT REPORTS THAT HE WILL BE RETURNING HOME WITH MOTHER AND THAT MOTHER WILL AID IN CARING FOR HIM ONCE DISCHARGED. PATIENT REPORTS NO BARRIES IN ACQUIRING MEDICATIONS AND RECEIVES MEDICATION FROM [facility] AND [facility] THE [facility]. PATIENT REPORTED BEING INCONSISTENT WITH MEETING WITH PCP. SW SPOKE TO PATIENT ABOUT THE IMPORTNACE OF FOLLOW UP CARE, CLIENT ACKNOWLEDGED AND PROVIDED SW WITH PERMISSION TO SCHEDULE FOLLOW UP CARE WITH PCP. PATIENT REPORTS BEING AMBULATORY WITHOUT ASSISTANCE. SW INQUIRED ON PATIENTS SUBSTANCE USE PATIENT TESTED POSITIVE FOR OPIOIDS AND AMPHETAMINES ON ADMISSIONS. SW PROVIDED PATIENT WITH PSYCHOEDUCATION ON APARTMENT ASSISTANT MANAGER USE. CLIENT WAS RECEPTIVE HOWEVER, CLIENT DENIED SUBSTANCE USE. SW OFFERED PATIENT ALCOHOL AND SUBSTANCE USE RESOURCES; CLIENT DECLINED. SW WILL MAKE FOLLOW UP APPT WITH PCP ONCE CLIENT HAS BEEN CLEARED FOR DISCHARGE. SW WILL FOLLOW UP NEEDED. Addendum: 08/13/21 at 1629 by Venus Nicholas SW CALL PATIENT AT TO DISCUSS PATIENT'S FOLLOW UP APPOINTMENT WITH ZACHARIAH ARNOLD AT . THELMA INFORMED PATIENT THAT NEW DOCTOR HE REQUESTED FOR SW TO MAKE HIS FOLLOW UP APPOINTMENT WITH DO NOT TAKE HIS INSURANCE AND INFORM HIM THAT UNFORTUNATELY HE WILL HAVE TO BE BACK WITH CURRENT PCP FOR APPOINTMENT. MEAN WHILE IF HE WANTS TO MAKE A CHANGE OF PCP HE WILL HAVE TO CONTACT HIS INSURANCE TO MAKE THOSE CHANGES. PATIENT AGREED AND REPORTED THAT HE WILL BE MAKING HIS OWN APPOINTMENT WITH HIS CURRENT PCP. PATIENT THANKED THELMA FOR THE INFORMATION AND ENDED THE CALL .
[2021-08-09] MEDS: HYDROcodone/APAP 7.5/325 MG 1 TAB PO PRN (12:37)
--- NOTE | 2021-08-09 12:38 | NUR ---
PT HAD SQUEEZING PAIN ON HIS RIGHT SHOULDER, WITH A PAIN LEVEL OF 7 OUT OF 10. PT REQUESTED FOR PAIN MED. GAVE PAIN MEDICATION ORDERED, NORCO.
--- NOTE | 2021-08-09 15:00 | NUR ---
PT LYING ON HIS BED, AWAKE. DENIES PAIN AT THIS TIME. WILL CONTINUE TO MONITOR.
[2021-08-09 16:00] VITALS: BP 103/69
[2021-08-09] MEDS: CYCLOBENZAPRINE 10 MG TAB PO SCH (17:39)
--- NOTE | 2021-08-09 17:39 | NUR ---
DUE MEDS GIVEN ORDERED. PT IV LINE IS INTACT AND PATENT. WILL CONTINUE TO MONITOR.
--- NOTE | 2021-08-09 19:15 | NUR ---
GAVE REPORT TO DEPALLETIZER OPERATOR NURSE. PATIENT DENIES PAIN. PT NOT IN DISTRESS AT THIS TIME. V/S ARE WITHIN NORMAL LIMITS. DISCUSSED PLAN OF CARE.
--- NOTE | 2021-08-09 19:16 | NUR ---
RECEIVED PATIENT FROM ELOY VIVAS FOR CONTINUITY OF CARE. PATIENT IS STABLE IN BED. PATIENT IS ALERT AND ORIENTED X 4. DENIES ANY PAIN/DISCOMFORT. ON ROOM AIR. RESPIRATIONS EVEN AND UNLABORED. IV SITE CLEAN AND PATENT ONTHE RIGHT FOREARM WITH 20 LUANA. SKIN INTACT. PATIENT IS AMBULATORY WITH MINIMAL ASSIST AWARE TO USE CALL. LIGHT. BED AT THE LOWEST POSITION SIDE RAILS X 2 FOR ASSISTANCE. CALL LIGHT IN REACH. PATIENT WAS ENCOURAGED TO USE THE CALL LIGHT FOR ALL NEEDS AND ASSISTANCE. WILL CONTINUE TO MONITOR. [email or web address] Addendum: 08/09/21 at 2038 by Maxine Morris LVN WRONG PATIENT CHARTING [email or web address]
--- NOTE | 2021-08-09 19:16 | NUR ---
RECEIVED PATIENT FROM ELOY VIVAS FOR CONTINUITY OF CARE. PATIENT IS STABLE IN BED. PATIENT IS ALERT AND ORIENTED X 4. DENIES ANY PAIN/DISCOMFORT. ON ROOM AIR. RESPIRATIONS EVEN AND UNLABORED. IV SITE CLEAN AND PATENT ON THE RIGHT ARM WITH 22 LUANA. SKIN INTACT. PATIENT IS AMBULATORY. PATIENT HAS BEEN PLACE ON CONTACT PRECAUTION D/T LAB RESULTS. BED AT THE LOWEST POSITION SIDE RAILS X 2 FOR ASSISTANCE. CALL LIGHT IN REACH. PATIENT WAS ENCOURAGED TO USE THE CALL LIGHT FOR ALL NEEDS AND ASSISTANCE. WILL CONTINUE TO MONITOR. [email or web address]
[2021-08-09 20:00] VITALS: BP 110/77
--- NOTE | 2021-08-09 20:00 | NUR ---
Patient's Plan of Care was discussed and reviewed with CAROLINE: MADDI
--- NOTE | 2021-08-09 21:16 | NUR ---
PATIENT RECEIVED IVPB ADMINISTERED BY RAYA RN. TOLERATED WELL. DENIES PAIN. RESPIRATIONS EVEN AND UNLABORED WITH NO APPARENT S/SX OF ACUTE DISTRESS. GIVEN SNACK BY PT REQUEST. WHITE COMMUNICATION BOARD UPDATED. ALL SAFETY MEASURES ARE IN PLACE. CALL LIGHT WITHIN REACH. WILL CONTINUE TO MONITOR.
--- NOTE | 2021-08-09 23:16 | NUR ---
PATIENT IN BED ASLEEP. NO NOTED S/SX OF ACUTE DISTRESS OR PAIN. NO NOTED S/SX OF ACUTE RESPIRATORY DISTRESS. ALL SAFETY MEASURES ARE IN PLACE. CALL LIGHT IS WITHIN REACH. WILL CONTINUE TO MONITOR.
--- NOTE | 2021-08-10 03:16 | NUR ---
CHECKED PT. STABLE AND ASLEEP. CHEST IS RISING AND FALLING. RESPIRATIONS EVEN AND UNLABORED WITH NO APPARENT S/SX OF ACUTE DISTRESS. WHITE COMMUNICATION BOARD UPDATED. ALL SAFETY MEASURES IN PLACE. CALL LIGHT WITHIN REACH. WILL CONTINUE TO MONITOR.
[2021-08-10 04:00] VITALS: BP 106/82
--- NOTE | 2021-08-10 05:08 | NUR ---
PATIENT REQUESTED LABS TO BE DRAWN LATER IN THE DAY. RESIDENCE MANAGER AND NURSE AWARE.
--- NOTE | 2021-08-10 05:16 | NUR ---
VITAL SIGNS WERE TAKEN AND WITHIN NORMAL LIMITS NO NOTED S/SX OR RESPIRATORY DISTRESS. NO NOTED ACUTE PAIN/DISCOMFORT. SAFETY MEASURES ARE IN PLACE. CALL LIGHT WITHIN REACH. WILL CONTINUE TO MONITOR.
--- NOTE | 2021-08-10 07:23 | NUR ---
ENDORSED PATIENT TO RGEG RN FOR CONTINUITY OF CARE. PATIENT IS STABLE.
[2021-08-10] MEDS ORDERED: METOPROLOL SUCCINATE 50 MG TABER PO SCH (09:00)
[2021-08-10] MEDS ORDERED: FUROSEMIDE 40 MG TAB PO SCH (09:00)
[2021-08-10] MEDS: MEROPENEM 1,000 MG in NACL 0.9% 50 ML IV SCH (09:56)
[2021-08-10] MEDS: PANTOPRAZOLE 40 MG TABEC PO SCH (09:56)
[2021-08-10] MEDS: CYCLOBENZAPRINE 10 MG TAB PO SCH ×2 (09:57→12:39)
[2021-08-10] MEDS ORDERED: FURO40TA9 PO (11:12)
[2021-08-10] MEDS ORDERED: SACU1TAB PO (11:12)
[2021-08-10] MEDS ORDERED: METO50TE2 PO (11:12)
[2021-08-10] MEDS ORDERED: AMOX-999 PO (11:13)
== END 2021-08-10 14:50 | disposition home or self-care (01) | DRG 133 ==
LOC: MED 00:44 → MMU 07:49
PROVIDERS: ADMIT Family Medicine; ATTEND Family Medicine
DX: J96.00 Acute respiratory failure, unspecified whether with hypoxia or hypercapnia (principal); N17.0 Acute kidney failure with tubular necrosis; I50.43 Acute on chronic combined systolic (congestive) and diastolic (congestive) heart failure; E44.0 Moderate protein-calorie malnutrition; I11.0 Hypertensive heart disease with heart failure; Z20.822 Contact with and (suspected) exposure to COVID-19; I25.5 Ischemic cardiomyopathy; N39.0 Urinary tract infection, site not specified; F15.10 Other stimulant abuse, uncomplicated; B96.20 Unspecified Escherichia coli [E. coli] as the cause of diseases classified elsewhere
CPT/HCPCS: 36415; 71045; 80048; 80053; 80305; 81001; 82150; 83036; 83690; 83735; 83880; 84100; 84436; 84439; 84443; 84479; 84484; 85025; 85610; 85730; 87086; 93005; 96374; 96375; 99291; J1940; J2185; J2270; Q0092

== ENCOUNTER 2021-08-16 00:34 | Emergency (ER) | payer MEDICAID ==
[~2021-08-16] VITALS: Ht 180.3 cm; Wt 104.3 kg
[~2021-08-16 00:34] MED LIST changes: +AMOX-999 PO; -CEPH-588 PO; -FURO-572 PO; +FURO40TA9 PO; +METO50TE2 PO
[2021-08-16 00:43] VITALS: BP 114/73
--- NOTE | 2021-08-16 00:49 | NUR ---
Patient ambulated to bed 8.
[2021-08-16] MEDS ORDERED: FUROSEMIDE 40 MG/4 ML VIAL IVP ONE (01:25)
[2021-08-16 01:43] LABS: BASOPHILS % (AUTO) 0.6 % (0.0-2.0); EOSINOPHILS # (AUTO) 0.1 K/uL (0-0.4); EOSINOPHILS % (AUTO) 1.6 % (0.0-4.0); HEMATOCRIT 50.8 % (36-52); HEMOGLOBIN 16.8 g/dL (12.0-18.0); LYMPHOCYTES # (AUTO) 2.6 K/uL (2.0-11.5); LYMPHOCYTES % (AUTO) 50.4 % (20.5-51.1); MEAN CORPUSCULAR HEMOGLOBIN 28 pg (27-31); MEAN CORPUSCULAR HGB CONC 33 g/dL (33-37); MEAN CORPUSCULAR VOLUME 84.7 fL (80-94); MONOCYTES # (AUTO) 0.5 K/uL (0.8-1.0); MONOCYTES % (AUTO) 8.9 % (1.7-9.3); NEUTROPHILS % (AUTO) 38.5 % (42.2-75.2); PLATELET COUNT (AUTO) 169 K/uL (140-450); RED CELL DISTRIBUTION WIDTH 15.1 % (11.6-13.7); WHITE BLOOD COUNT (AUTO) 5.1 K/uL (4.8-10.8)
--- NOTE | 2021-08-16 01:45 | NUR ---
medicated as per ERMDs order , tolerated well.
[2021-08-16 01:56] LABS: ANION GAP 15.3 (8-16); CARBON DIOXIDE 26.7 mmol/L (21-32)
--- NOTE | 2021-08-16 02:13 | NUR ---
30 y/o M BIB SELF FOR SWELLING OF THE LEGS BILATERALLY. PT STATES HE WAS HERE LAST FRIDAY AND THEY GAVE HIM FLUIDS. SWELLING IN THE ANKLES AND LOWER LEG. LOWER LEG PITTING EDEMA +1 . PT STATES HE HAS BEEN ELEVATING BUT SWELLING IS NOT GOING DOWN. PT STATES HE DIAGNOSED WITH HF. PT HAS PNEUMONIA X2 WEEKS AGO BUT IT IS GONE NOW . DENIES N/V/D; SKIN IS PINK/WARM/DRY; AAOX4 WITH EVEN AND STEADY GAIT; LUNGS CLEAR BL; HR EVEN AND REGULAR; PT DENIES ANY FEVER, CP, SOB, OR COUGH AT THIS TIME; PATIENT STATES PAIN OF 1/10 AT THIS TIME; VSS; PATIENT POSITIONED FOR COMFORT; HOB ELEVATED; BEDRAILS UP X2; BED DOWN. ER MD MADE AWARE OF PT STATUS. PMH: HEART FAILURE SOCIAL HX: SMOKED CIGARETTES 10 YEARS , SMOKED METH X1 YEAR RX: LASIX NKA
[2021-08-16 03:08] VITALS: BP 112/76
--- NOTE | 2021-08-16 03:08 | NUR ---
Patient discharged with v/s stable. Written and verbal after care instructions given and explained. Patient verbalized understanding. Ambulatory with steady gait. All questions addressed prior to discharge. Advised to follow up with PMD.
== END 2021-08-16 03:08 | disposition home or self-care (01) ==
LOC: MED 00:34
DX: R60.9 Edema, unspecified (principal); I50.9 Heart failure, unspecified; F17.200 Nicotine dependence, unspecified, uncomplicated; Z79.899 Other long term (current) drug therapy
CPT/HCPCS: 36415; 80048; 83880; 85025; 96374; 99283; J1940

== ENCOUNTER 2021-08-17 12:17 | Emergency (ER) | payer MEDICAID ==
[~2021-08-17] VITALS: Ht 180.3 cm; Wt 107.5 kg
[2021-08-17 12:21] VITALS: BP 138/102
--- NOTE | 2021-08-17 12:25 | NUR ---
PATIENT AMBULATED TO BED 4, STEADY GAIT
[2021-08-17] MEDS ORDERED: FUROSEMIDE 40 MG/4 ML VIAL IVP ONE (12:30)
[2021-08-17 13:49] LABS: ALBUMIN 2.9 g/dL (3.4-5.0); ANION GAP 11.8 (8-16); CARBON DIOXIDE 23.2 mmol/L (21-32); CREATININE 1.6 mg/dL (0.6-1.3); TOTAL BILIRUBIN 1.1 mg/dL (0.0-1.0)
[2021-08-17 13:57] LABS: BASOPHILS % (AUTO) 0.5 % (0.0-2.0); EOSINOPHILS # (AUTO) 0.1 K/uL (0-0.4); EOSINOPHILS % (AUTO) 1.2 % (0.0-4.0); HEMATOCRIT 47.1 % (36-52); HEMOGLOBIN 15.3 g/dL (12.0-18.0); LYMPHOCYTES # (AUTO) 2.1 K/uL (2.0-11.5); LYMPHOCYTES % (AUTO) 45.9 % (20.5-51.1); MEAN CORPUSCULAR HEMOGLOBIN 28 pg (27-31); MEAN CORPUSCULAR HGB CONC 33 g/dL (33-37); MEAN CORPUSCULAR VOLUME 85.2 fL (80-94); MONOCYTES # (AUTO) 0.5 K/uL (0.8-1.0); MONOCYTES % (AUTO) 10.3 % (1.7-9.3); NEUTROPHILS # (AUTO) 1.9 K/uL (1.8-7.7); NEUTROPHILS % (AUTO) 42.1 % (42.2-75.2); PLATELET COUNT (AUTO) 162 K/uL (140-450); RED BLOOD CELL COUNT(AUTO) 5.53 MIL/uL (4.20-6.10); RED CELL DISTRIBUTION WIDTH 15.2 % (11.6-13.7); WHITE BLOOD COUNT (AUTO) 4.6 K/uL (4.8-10.8)
[2021-08-17 14:46] VITALS: BP 105/73
--- NOTE | 2021-08-17 14:46 | NUR ---
Patient discharged with v/s stable. Written and verbal after care instructions ABOUT PERIPHERAL EDEMA given and explained. Patient verbalized understanding. Ambulatory with steady gait. All questions addressed prior to discharge. Advised to follow up with PMD.
== END 2021-08-17 14:46 | disposition home or self-care (01) ==
LOC: MED 12:17
DX: R60.9 Edema, unspecified (principal); I50.9 Heart failure, unspecified; Z90.49 Acquired absence of other specified parts of digestive tract; Z79.899 Other long term (current) drug therapy
CPT/HCPCS: 36415; 71045; 80053; 83880; 84484; 85025; 96374; 99284; J1940; Q0092; 93005

== ENCOUNTER 2021-08-28 03:48 | Emergency (ER) | payer MEDICAID ==
[~2021-08-28] VITALS: Ht 180.3 cm; Wt 112.7 kg
[2021-08-28 03:53] VITALS: BP 109/80
--- NOTE | 2021-08-28 03:59 | NUR ---
pt ambulatory to bed 02.
--- NOTE | 2021-08-28 04:03 | NUR ---
30 YO MALE PRESENTS TO ED WITH C/O ABDOMINAL, GROIN AND BILATERAL ETREMITY SWELLING X 2 DAYS. DENIES N/V/D; SKIN IS EDEMATOUS; AAOX4 WITH EVEN AND STEADY GAIT; HR EVEN AND REGULAR; PT DENIES ANY CP, SOB, AT THIS TIME; PATIENT POSITIONED FOR COMFORT; HOB ELEVATED; BEDRAILS UP X2; BED DOWN. ER MD MADE AWARE OF PT STATUS.
--- NOTE | 2021-08-28 04:17 | NUR ---
ERMD AT BEDSIDE
--- NOTE | 2021-08-28 05:15 | NUR ---
BLOOD COLLECTED AND SENT TO LAB
--- NOTE | 2021-08-28 05:33 | NUR ---
URINE COLLLECTED AND WALKED TO LAB
[2021-08-28 05:36] LABS: BASOPHILS # (AUTO) 0.1 K/uL (0.00-0.22); BASOPHILS % (AUTO) 0.9 % (0.0-2.0); EOSINOPHILS # (AUTO) 0.1 K/uL (0-0.4); EOSINOPHILS % (AUTO) 1.9 % (0.0-4.0); HEMATOCRIT 46.2 % (36-52); HEMOGLOBIN 15.2 g/dL (12.0-18.0); LYMPHOCYTES # (AUTO) 2.1 K/uL (2.0-11.5); LYMPHOCYTES % (AUTO) 36.3 % (20.5-51.1); MEAN CORPUSCULAR HEMOGLOBIN 28 pg (27-31); MEAN CORPUSCULAR HGB CONC 33 g/dL (33-37); MEAN CORPUSCULAR VOLUME 83.6 fL (80-94); MONOCYTES # (AUTO) 0.5 K/uL (0.8-1.0); MONOCYTES % (AUTO) 9.5 % (1.7-9.3); NEUTROPHILS # (AUTO) 2.9 K/uL (1.8-7.7); NEUTROPHILS % (AUTO) 51.4 % (42.2-75.2); PLATELET COUNT (AUTO) 172 K/uL (140-450); RED BLOOD CELL COUNT(AUTO) 5.52 MIL/uL (4.20-6.10); RED CELL DISTRIBUTION WIDTH 15.1 % (11.6-13.7); WHITE BLOOD COUNT (AUTO) 5.7 K/uL (4.8-10.8)
[2021-08-28 05:40] LABS: ALBUMIN 3.1 g/dL (3.4-5.0); ANION GAP 6.4 (8-16); CARBON DIOXIDE 34.8 mmol/L (21-32); CREATININE 1.9 mg/dL (0.6-1.3); POTASSIUM 3.2 mmol/L (3.5-5.1); TOTAL BILIRUBIN 1.1 mg/dL (0.0-1.0)
--- NOTE | 2021-08-28 06:06 | NUR ---
PT PLACED ON 2L NASAL CANNULA STAYING AT 95%
[2021-08-28 06:08] LABS: BARBITURATE, URINE NEGATIVE ng/ml (NEG <=200); BENZODIAZEPINE, URINE NEGATIVE ng/mL (NEG <=200); CANNABINOID, URINE NEGATIVE ng/mL (NEG <=50); COCAINE, URINE NEGATIVE ng/mL (NEG <=300); OPIATE, URINE NEGATIVE ng/mL (NEG <=2000); PHENCYCLIDINE SCREEN,URINE NEGATIVE ng/mL (NEG <=25)
[2021-08-28 06:19] LABS: APPEARANCE,URINE CLEAR (CLEAR); BILIRUBIN,URINE NEGATIVE (NEGATIVE); BLOOD, URINE NEGATIVE (NEGATIVE); COLOR,URINE YELLOW (YELLOW); LEUKOCYTE ESTERASE ,URINE NEGATIVE (NEGATIVE); NITRITE, URINE NEGATIVE (NEGATIVE); PH,URINE 7.5 (5.0-9.0); UGLUCOSE NEGATIVE (NEGATIVE)
[2021-08-28] MEDS ORDERED: POTASSIUM CHLORIDE 10 MEQ TABER PO ONE ×2 (06:45→06:55)
[2021-08-28 07:20] VITALS: BP 120/66
== END 2021-08-28 07:20 | disposition home or self-care (01) ==
LOC: MED 03:48
DX: N18.9 Chronic kidney disease, unspecified (principal); I50.9 Heart failure, unspecified; F15.10 Other stimulant abuse, uncomplicated; R60.1 Generalized edema; Z79.899 Other long term (current) drug therapy; Z79.2 Long term (current) use of antibiotics
CPT/HCPCS: 36415; 80053; 80305; 81003; 83880; 85025; 93005; 99284

== ENCOUNTER 2021-09-16 03:12 | Inpatient (IN) | payer MEDICAID ==
[~2021-09-16] VITALS: Ht 180.3 cm; Wt 114.8 kg
[2021-09-16 03:23] VITALS: BP 116/80
--- NOTE | 2021-09-16 03:28 | NUR ---
PT TAKEN TO BED 11
--- NOTE | 2021-09-16 03:38 | NUR ---
30 Y/O MALE BIBS FROM HOME, C/O SOB X2HRS. PT STATES HE WAS AWOKEN FROM SLEEP. LUNGS ARE CLEAR AND EQUAL BILATERALY. SKIN NORMAL, DRY, AND WARM; PT HAS CP 7/10 RADIATING ACROSS CHEST; BILATERAL PITTING PEDAL EDEMA; A/OX4, GCS-15. UNLABORED BREATHING, AND AMBULATORY W/O ASSISTANCE. PT SEATED IN BED WITH HOB RAISE, BED IN LOWEST POSITION, AND RAIL UP X1. HX: CHF NKA MED: LASIX, (2 OTHER MEDS HE DOES NOT KNOW THE NAME)
--- NOTE | 2021-09-16 03:40 | NUR ---
Dr. Vaughn examining patient.
[2021-09-16] MEDS ORDERED: FUROSEMIDE 40 MG TAB PO ONE (03:50)
--- NOTE | 2021-09-16 03:53 | NUR ---
X-Ray at bedside.
--- NOTE | 2021-09-16 04:08 | NUR ---
matlab developer at bedside
[2021-09-16 04:29] LABS: BASOPHILS % (AUTO) 0.6 % (0.0-2.0); EOSINOPHILS # (AUTO) 0.1 K/uL (0-0.4); EOSINOPHILS % (AUTO) 1.9 % (0.0-4.0); HEMATOCRIT 50.2 % (36-52); HEMOGLOBIN 16.2 g/dL (12.0-18.0); LYMPHOCYTES # (AUTO) 2.4 K/uL (2.0-11.5); LYMPHOCYTES % (AUTO) 52.1 % (20.5-51.1); MEAN CORPUSCULAR HEMOGLOBIN 28 pg (27-31); MEAN CORPUSCULAR HGB CONC 32 g/dL (33-37); MEAN CORPUSCULAR VOLUME 85.3 fL (80-94); MONOCYTES # (AUTO) 0.4 K/uL (0.8-1.0); MONOCYTES % (AUTO) 8.5 % (1.7-9.3); NEUTROPHILS # (AUTO) 1.7 K/uL (1.8-7.7); NEUTROPHILS % (AUTO) 36.9 % (42.2-75.2); PLATELET COUNT (AUTO) 199 K/uL (140-450); RED BLOOD CELL COUNT(AUTO) 5.88 MIL/uL (4.20-6.10); WHITE BLOOD COUNT (AUTO) 4.7 K/uL (4.8-10.8)
[2021-09-16] MEDS ORDERED: NITROGLYCERIN 0.4 MG TAB SL ONE (04:35)
[2021-09-16] MEDS ORDERED: ASPIRIN 325 MG TAB PO ONE (04:35)
[2021-09-16 04:41] LABS: ANION GAP 13.5 (8-16); CARBON DIOXIDE 25.7 mmol/L (21-32); POTASSIUM 4.2 mmol/L (3.5-5.1)
--- NOTE | 2021-09-16 05:07 | NUR ---
ARDEN/NICOLAS SWABBED AND WALKED TO LAB
[2021-09-16] MEDS ORDERED: ALBUTEROL SULFATE/IPRATROPIU 3 ML SOL IH ONE (06:15)
[2021-09-16] MEDS ORDERED: FUROSEMIDE 40 MG/4 ML VIAL IVP ONE (06:15)
--- NOTE | 2021-09-16 06:18 | NUR ---
Respiratory Therapist at bedside for respiratory intervention.
--- NOTE | 2021-09-16 06:54 | NUR ---
Patient will be admitted to care of DR HAN. Admited to TELE. Will go to room 126B. Belongings list completed. Report to ORTEGA DAWSON.
--- NOTE | 2021-09-16 07:30 | NUR ---
RECEIVED REPORT FROM WEIGH TANK OPERATOR NURSE FOR CONTINUITY OF CARE. PT ADMITTED TO UNIT AT 0645. PT AWAKE, ALERT/ORIENTED X4, AMBULATORY WITH STEADY GAIT. BREATHING SYMMETRICAL ON ROOM AIR. NO C/O PAIN AT THIS TIME. WITH LAC20G, NO IVF RUNNING AT THIS TIME. CALL LIGHT WITHIN REACH. ALL SAFETY MEASURES IN PLACE. [id number]/91 PR94 RR20 TEMP97.5 O2 UBP498%
--- NOTE | 2021-09-16 07:55 | NUR ---
PATIENT HAS BEEN SCREENED AND CATEGORIZED MODERATE NUTRITION RISK. PATIENT WILL BE SEEN WITHIN 3-5 DAYS OF ADMISSION. 09/16/21-09/20/[address]
[2021-09-16 08:00] VITALS: BP 124/91
[2021-09-16 09:57] LABS: BASOPHILS % (AUTO) 1.1 % (0.0-2.0); EOSINOPHILS # (AUTO) 0.1 K/uL (0-0.4); EOSINOPHILS % (AUTO) 1.3 % (0.0-4.0); HEMATOCRIT 50.4 % (36-52); HEMOGLOBIN 16.6 g/dL (12.0-18.0); LYMPHOCYTES # (AUTO) 1.8 K/uL (2.0-11.5); MEAN CORPUSCULAR HEMOGLOBIN 27 pg (27-31); MEAN CORPUSCULAR HGB CONC 33 g/dL (33-37); MONOCYTES # (AUTO) 0.2 K/uL (0.8-1.0); MONOCYTES % (AUTO) 4.9 % (1.7-9.3); NEUTROPHILS # (AUTO) 1.9 K/uL (1.8-7.7); NEUTROPHILS % (AUTO) 47.7 % (42.2-75.2); PLATELET COUNT (AUTO) 212 K/uL (140-450); RED BLOOD CELL COUNT(AUTO) 6.07 MIL/uL (4.20-6.10); RED CELL DISTRIBUTION WIDTH 15.8 % (11.6-13.7)
[2021-09-16 10:08] LABS: ANION GAP 12.9 (8-16); CARBON DIOXIDE 28.7 mmol/L (21-32); POTASSIUM 4.6 mmol/L (3.5-5.1)
--- NOTE | 2021-09-16 10:20 | NUR ---
SCHEDULED AM MEDICATION GIVEN ORDERED.
[2021-09-16] MEDS ORDERED: HYDROcodone/APAP 5/325 MG 1 TAB TAB PO PRN ×2 (10:45→11:05)
--- NOTE | 2021-09-16 10:50 | NUR ---
PT C/O BILATERAL LOWER EXTREMITY PAIN 11/11, NO CURRENT PRN FOR PAIN MANAGEMENT AT THIS TIME. DR HAN MADE AWARE WITH NEW ORDERS MADE.
[2021-09-16] MEDS ORDERED: DOCUSATE SODIUM 100 MG GELCAP PO PRN (11:05)
[2021-09-16] MEDS ORDERED: ACETAMINOPHEN 325 MG TAB PO PRN (11:05)
[2021-09-16] MEDS ORDERED: LORazepam 2 MG/ML VIAL IM/IVP PRN (11:05)
[2021-09-16] MEDS ORDERED: ZOLPIDEM 5 MG TAB PO PRN (11:05)
[2021-09-16] MEDS ORDERED: ONDANSETRON 4 MG/2 ML VIAL IM/IVP PRN (11:05)
[2021-09-16] MEDS ORDERED: POTASSIUM CHLORIDE 10 MEQ TABER PO PRN (11:05)
[2021-09-16] MEDS ORDERED: NITROGLYCERIN 0.4 MG TAB SL PRN (11:05)
[2021-09-16] MEDS ORDERED: MAG SULF 2000 MG/WATER PREMIX 50 ML IV PRN (11:05)
--- NOTE | 2021-09-16 11:15 | NUR ---
PT MADE AWARE OF URINE SAMPLE COLLECTION. PT IS CONTINENT AND WILL CALL NURSE ONCE URINE SAMPLE IS AVAILABLE.
[2021-09-16 12:00] VITALS: BP 118/75
[2021-09-16 12:03] LABS: CHOL/HDL RATIO 5.5 (1-4.5); THYROID STIMULATING HORMONE 2.58 uIU/mL (0.34-3.74)
--- NOTE | 2021-09-16 15:25 | NUR ---
URINE SPECIMEN COLLECTED AND SENT TO LAB
[2021-09-16 16:00] VITALS: BP 136/76
[2021-09-16 16:29] LABS: APPEARANCE,URINE CLEAR (CLEAR); BILIRUBIN,URINE NEGATIVE (NEGATIVE); BLOOD, URINE TRACE-L (NEGATIVE); COLOR,URINE YELLOW (YELLOW); LEUKOCYTE ESTERASE ,URINE NEGATIVE (NEGATIVE); NITRITE, URINE NEGATIVE (NEGATIVE); UGLUCOSE NEGATIVE (NEGATIVE)
[2021-09-16] MEDS: FUROSEMIDE 40 MG TAB PO SCH (16:45)
[2021-09-16 16:53] LABS: BARBITURATE, URINE NEGATIVE ng/ml (NEG <=200); BENZODIAZEPINE, URINE NEGATIVE ng/mL (NEG <=200); CANNABINOID, URINE NEGATIVE ng/mL (NEG <=50); COCAINE, URINE NEGATIVE ng/mL (NEG <=300); OPIATE, URINE POSITIVE ng/mL (NEG <=2000); PHENCYCLIDINE SCREEN,URINE NEGATIVE ng/mL (NEG <=25); RBC,URINE 0-5 /HPF (0-5); WBC,URINE NONE SEEN /HPF (0-5)
--- NOTE | 2021-09-16 16:55 | NUR ---
PT IN BED, ASLEEP BUT EASILY AWAKEN AND AROUSABLE. PT STATES HE'S SLEEPY BUT OTHERWISE DOING FINE. BREATHING SYMMETRICAL ON ROOM AIR. DENIES PAIN AT THIS TIME. ENCOURAGED TO CALL FOR ASSISTANCE. CALL LIGHT WITHIN REACH.
--- NOTE | 2021-09-16 18:01 | NUR ---
PT TRANSFERRED TO [facility]
--- NOTE | 2021-09-16 19:44 | NUR ---
ENDORSED PT TO ETIOLOGIST NURSE, IN STABLE CONDITION
[2021-09-16 20:00] VITALS: BP 124/79
--- NOTE | 2021-09-16 20:00 | NUR ---
GET THE REPORT FROM MORNING NURSE PEGGY MUNOZ ,PATIENT IS LYING ON BED , PATIENT IS ALERT AND ORIENTED X 4, CALL LIGHT IS WITHIN THE REACH ,WILL CONTINUE TO MONITOR PATIENT.
[2021-09-16] MEDS ORDERED: ATORVASTATIN 20 MG TAB PO SCH (21:00)
--- NOTE | 2021-09-16 21:00 | NUR ---
PATIENT IS LYING ON BED, NO ANY COMPLAIN OF PAIN OR SHORTNESS OF BREATH AT THIS TIME,VITAL SIGN IS WITHIN THE NORMAL RANGE, ALL SCHEDULE MEDICATION IS GIVEN PER DOCTOR ORDER, CALL LIGHT IS WITHIN THE REACH,WILL CONTINUE TO MONITOR PATIENT.
[2021-09-16] MEDS: ENTRESTO PO SCH (21:21)
--- NOTE | 2021-09-17 01:01 | NUR ---
PATIENT IS LYING ON BED, NO ANY COMPLAIN OF PAIN AT THIS TIME.CALL LIGHT IS WITHIN THE REACH ,WILL CONTINUE TO MONITOR PATIENT.
[2021-09-17 04:00] VITALS: BP 120/91
--- NOTE | 2021-09-17 04:33 | NUR ---
PATIENT IS COMPLAINING OF ANXIETY, ATIVAN 1MG 0.5 IV ML PRN GIVEN PER DOCTOR ORDER, VITAL SIGN IS WITHIN THE NORMAL RANGE,CALL LIGHT IS WITHIN THE REACH ,WILL CONTINUE TO MONITOR PATIENT.
--- NOTE | 2021-09-17 04:47 | NUR ---
PATIENT IS REFUSING TO DROWN BLOOD WORK , PATIENT STAT WILL DO LATER, LABORATORY TACH SAY SOMEONE FROM LAB WILL COME AGAIN AND TRY BACK. WILL MONITOR PATIENT.
--- NOTE | 2021-09-17 07:25 | NUR ---
RECEIVED REPORT FROM STATISTICAL REPORTING ANALYST NURSE. PT IS A&OX4, ON ROOM AIR. PT HAS LEFT AC, WITH 20G. PT LAST BM WAS YESTERDAY. ALL SAFETY MEASURES DONE, CALL LIGHT WITHIN REACH. DISCUSSED PLAN OF CARE. WILL CONTINUE TO MONITOR.
[2021-09-17 08:00] VITALS: BP 119/78
[2021-09-17 08:07] LABS: T4 (THYROXINE) 7.2 ug/dL (4.5-12.0)
[2021-09-17] MEDS ORDERED: ASPIRIN 81 MG TAB.CHEW PO SCH (09:00)
[2021-09-17] MEDS: FUROSEMIDE 40 MG TAB PO SCH (09:44)
[2021-09-17] MEDS: METOPROLOL SUCCINATE 50 MG TABER PO SCH (09:44)
[2021-09-17] MEDS: ENTRESTO PO SCH ×2 (09:47→22:22)
--- NOTE | 2021-09-17 11:00 | NUR ---
URINE SPECIMEN COLLECTED, AND BROUGHT TO LABS.
[2021-09-17] MEDS ORDERED: FUROSEMIDE 20 MG/2 ML VIAL IVP SCH (11:57)
[2021-09-17 12:00] VITALS: BP 119/78
--- NOTE | 2021-09-17 12:00 | NUR ---
PT IS AWAKE, ON ROOM AIR, WITH BREATHING UNLABORED. WILL CONTINUE TO MONITOR.
[2021-09-17 16:00] VITALS: BP 107/73
--- NOTE | 2021-09-17 16:00 | NUR ---
PT IS SLEEPING ON HIS BED. NO DISTRESS NOTED AT THIS TIME. WILL CONTINUE TO MONITOR.
[2021-09-17] MEDS ORDERED: FUROSEMIDE 40 MG/4 ML VIAL IVP SCH (17:00)
--- NOTE | 2021-09-17 19:20 | NUR ---
GAVE REPORT TO SILO ERECTOR NURSE. PT IS STABLE. DISCUSSED PLAN OF CARE.
--- NOTE | 2021-09-17 19:25 | NUR ---
RECEIVED PT FROM AM NURSE FOR CONTINUITY OF CARE,PT IS STABLE
[2021-09-17 20:00] VITALS: BP 107/73
[2021-09-17] MEDS: FUROSEMIDE 40 MG/4 ML VIAL IVP SCH (21:05)
--- NOTE | 2021-09-17 21:30 | NUR ---
ALL MEDICATIONS GIVEN,TOLERATED WELL,BREATHING EVEN AND UNLABORED,NO DISTRESS NOTED
[2021-09-17 22:14] LABS: ANION GAP 18.3 (8-16); CREATININE 1.7 mg/dL (0.6-1.3); POTASSIUM 4.3 mmol/L (3.5-5.1)
[2021-09-17 22:16] LABS: MAGNESIUM 2.6 mg/dL (1.8-2.4); PHOSPHORUS 4.8 mg/dL (2.5-4.9)
--- NOTE | 2021-09-18 01:00 | NUR ---
PATIENT ASLEEP,,NO DISTRESS NOTED. ALL SAFETY MEASURES ARE IN PLACE, CALL LIGHT WITH IN EASY REACH
--- NOTE | 2021-09-18 03:00 | NUR ---
PATIENT SLEEPING COMFORTABLY,NO S/SX OF DISTRESS NOTED
[2021-09-18 04:00] VITALS: BP 105/69
[2021-09-18] MEDS: FUROSEMIDE 40 MG/4 ML VIAL IVP SCH ×3 (04:53→21:14)
--- NOTE | 2021-09-18 06:00 | NUR ---
PATIENT IS AWAKE,NOSHORTNESS OF BREATH NOTED,NO COMPLAIN OF PAIN
--- NOTE | 2021-09-18 07:30 | NUR ---
ENDORSED PT TO AM NURSE FOR CONTINUITY OF CARE.PT IS STABLE
--- NOTE | 2021-09-18 07:44 | NUR ---
GOT REPORT FROM THE NIGHT NURSE, PT IN BED SLEEPING WITH OUT SOB.[id number]
[2021-09-18 08:00] VITALS: BP 115/84
[2021-09-18] MEDS: CHLORHEXADINE GLUC 2% CLOTH TP SCH (08:00)
[2021-09-18] MEDS: METOPROLOL SUCCINATE 50 MG TABER PO SCH (09:33)
[2021-09-18] MEDS: ENTRESTO PO SCH ×2 (09:36→21:16)
[2021-09-18] MEDS: MUPIROCIN CA NASAL 2% 1GM TUBE NS SCH (09:40)
--- NOTE | 2021-09-18 11:08 | NUR ---
DC PLANNIN YRS OLD MALE PATIENT WAS ADMITTED FROM HOME WITH A DX OF R/O CHEST PAIN. 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 CXR SHOWED CARDIOMEGALY . RAPID COVID TEST NEGATIVE. O2 2L/NC SATING. US OF VENOUS AND ARTERIAL NEGATIVE FOR DVT ADMINISTERED IV LASIX AND CONTINUED HOME MEDS. CARDIO AND NEPHRO FOLLOWING . DC PLAN TO GO HOME WHEN STABLE. CM TO FOLLOW
[2021-09-18 12:00] VITALS: BP 115/84
--- NOTE | 2021-09-18 15:16 | NUR ---
[place] PLANNING PATIENT IS A 30 YRS OLD MALE PATIENT ADMITTED FROM HOME ON 09/16/21 WITH COMPLAINTS OF CHEST PAIN. PATIENT HAS A HX OF METH USE CHF, AND HTN. SW MET WITH CLIENT AT BEDSIDE FOR THE PURPOSE OF DISCUSSING AND GATHERING COLLATERAL INFORMATION. PATIENT REPORTS LIVING AT HOME WITH MOTHER, JUAN DUBOIS. PATIENT IDENTIFIES EMERGENCY CONTACT AND MEDICAL DECISION MAKER DORIAN DUBOIS . PATIENT DENIED HAVING AD IN PLACE AND DECLINED AD PACKET PROVIDED BY SW. PATIENT REPORTS BEING AMBULATORY WITHOUT DME ASSISTANCE. PATIENT REPORTED BEING INCONSISTENT WITH MEETING WITH PCP AND WAS UNABLE TO RECALL LAST VISIT. PATIENT REPORTS NO BARRIERS IN ACQUIRING MEDICATIONS AND RECEIVES MEDICATION FROM [facility] IN THE [facility], WHEN NEEDED. SW SPOKE TO PATIENT ABOUT THE IMPORTANCE OF FOLLOW UP CARE, CLIENT ACKNOWLEDGED AND PROVIDED SW WITH PERMISSION TO SCHEDULE FOLLOW UP CARE WITH PCP. SW INQUIRED ON PATIENTS SUBSTANCE USE PATIENT TESTED POSITIVE FOR OPIOIDS AND AMPHETAMINES ON ADMISSION. SW PROVIDED PATIENT WITH PSYCHOEDUCATION ON HALFWAY USE. CLIENT WAS RECEPTIVE HOWEVER, CLIENT DENIED SUBSTANCE USE RESOURCES. PATIENT REPORTS ADEQUATE FRIEND AND FAMILY SUPPORT. PATIENT REPORTS THAT HE WILL BE RETURNING HOME WITH MOTHER AND THAT MOTHER WILL AID IN CARING FOR HIM ONCE CLEARED FOR DISCHARGE.SW WILL MAKE FOLLOW UP APPT WITH PCP ONCE CLIENT HAS BEEN CLEARED FOR DISCHARGE. SW WILL FOLLOW UP NEEDED. Addendum: 09/19/21 at 1043 by Martita Lara THELMA OUTREACHED TO PCP DR. CALLAHAN OFFICE AT [phone] TO SCHEDULE FOLLOW UP APPT PATIENT IS CHF. THELMA SPOKE WITH JIA NEWTON REP WHO SCHEDULED APPT FOR 09/25/21 AT 2:00PM WITH DR. CALLAHAN AT [address] [facility] [id number]. SW PROVIDED PATIENT W/ APPT CARD THAT HAD APPT DETAILS THAT INCLUDED; DATE, TIME, ADDRESS, PHONE NUMBER AND
[2021-09-18 16:00] VITALS: BP 107/73
--- NOTE | 2021-09-18 16:53 | NUR ---
PT REQUESTED SANDWICH SAYS ANKITA, GIVEN TUNA SANDWICH FROM [place].[id number]
[2021-09-18 17:31] LABS: BASOPHILS % (AUTO) 0.7 % (0.0-2.0); EOSINOPHILS # (AUTO) 0.2 K/uL (0-0.4); EOSINOPHILS % (AUTO) 3.8 % (0.0-4.0); HEMATOCRIT 48.8 % (36-52); HEMOGLOBIN 16.2 g/dL (12.0-18.0); LYMPHOCYTES # (AUTO) 1.7 K/uL (2.0-11.5); LYMPHOCYTES % (AUTO) 39.5 % (20.5-51.1); MEAN CORPUSCULAR HEMOGLOBIN 28 pg (27-31); MEAN CORPUSCULAR HGB CONC 33 g/dL (33-37); MONOCYTES # (AUTO) 0.5 K/uL (0.8-1.0); MONOCYTES % (AUTO) 10.8 % (1.7-9.3); NEUTROPHILS % (AUTO) 45.2 % (42.2-75.2); PLATELET COUNT (AUTO) 216 K/uL (140-450); RED BLOOD CELL COUNT(AUTO) 5.88 MIL/uL (4.20-6.10); RED CELL DISTRIBUTION WIDTH 15.7 % (11.6-13.7); WHITE BLOOD COUNT (AUTO) 4.4 K/uL (4.8-10.8)
[2021-09-18 17:51] LABS: ANION GAP 13.8 (8-16); CREATININE 1.8 mg/dL (0.6-1.3); POTASSIUM 3.8 mmol/L (3.5-5.1)
[2021-09-18 17:56] LABS: MAGNESIUM 2.3 mg/dL (1.8-2.4); PHOSPHORUS 5.2 mg/dL (2.5-4.9)
--- NOTE | 2021-09-18 19:20 | NUR ---
RECEIVED PATIENT FROM AM NURSE FOR CONTINUITY OF CARE.PT IS STABLE
[2021-09-18 20:00] VITALS: BP 121/76
--- NOTE | 2021-09-18 21:30 | NUR ---
ALL MEDICATIONS GIVEN,NO ADVERSE REACTIONS NOTED
--- NOTE | 2021-09-19 01:00 | NUR ---
PATIENT ASLEEP.BREATHING EVEN AND UNLABORED,NO DISTRESS NOTED
[2021-09-19 04:00] VITALS: BP 125/81
--- NOTE | 2021-09-19 04:00 | NUR ---
REFUSED BLD DRAW , WANTS IT AFTER BREAKFAST. NO COMPLAIN OF PAIN ,NO SOB NOTED
[2021-09-19] MEDS: FUROSEMIDE 40 MG/4 ML VIAL IVP SCH (04:52)
[2021-09-19 06:28] LABS: APPEARANCE,URINE CLEAR (CLEAR); BILIRUBIN,URINE NEGATIVE (NEGATIVE); BLOOD, URINE NEGATIVE (NEGATIVE); COLOR,URINE YELLOW (YELLOW); LEUKOCYTE ESTERASE ,URINE NEGATIVE (NEGATIVE); NITRITE, URINE NEGATIVE (NEGATIVE); UGLUCOSE NEGATIVE (NEGATIVE)
--- NOTE | 2021-09-19 07:30 | NUR ---
RECEIVED REPORT FROM CHEMICAL DEPENDENCY ATTENDANT NURSE. PT RESTING IN BED, EYES CLOSED. NO S/S OF DISTRESS. BREATHING SYMMETRICAL. CALL LIGHT IN REACH. ALL SAFETY MEASURES IN PLACE.
[2021-09-19] MEDS: CHLORHEXADINE GLUC 2% CLOTH TP SCH (08:00)
[2021-09-19] MEDS: METOPROLOL SUCCINATE 50 MG TABER PO SCH (09:02)
[2021-09-19] MEDS: MUPIROCIN CA NASAL 2% 1GM TUBE NS SCH (09:02)
[2021-09-19] MEDS: ENTRESTO PO SCH (09:03)
[2021-09-19] MEDS ORDERED: METO50TE2 PO (09:21)
[2021-09-19] MEDS ORDERED: FURO40TA9 PO (09:21)
[2021-09-19] MEDS ORDERED: SACU1TAB PO (09:21)
--- NOTE | 2021-09-19 10:39 | NUR ---
PT AMBULATED WITH FAMILY TO FRONT LOBBY. ID BANDS REMOVED. IV REMOVED, CANULA INTACT. NO S/S OF DISTRESS. ALL SAFETY MEASURES IN PLACE.
[2021-09-19] MEDS ORDERED: FUROSEMIDE 40 MG TAB PO SCH (21:00)
== END 2021-09-19 10:40 | disposition home or self-care (01) | DRG 194 ==
LOC: MED 03:12 → MMU 06:06
DX: I13.0 Hypertensive heart and chronic kidney disease with heart failure and stage 1 through stage 4 chronic kidney disease, or unspecified chronic kidney disease (principal); N17.0 Acute kidney failure with tubular necrosis; G92.9 Unspecified toxic encephalopathy; E44.1 Mild protein-calorie malnutrition; T43.621A Poisoning by amphetamines, accidental (unintentional), initial encounter; I50.43 Acute on chronic combined systolic (congestive) and diastolic (congestive) heart failure; I24.8 Other forms of acute ischemic heart disease; F15.10 Other stimulant abuse, uncomplicated; Z20.822 Contact with and (suspected) exposure to COVID-19; E66.9 Obesity, unspecified; I42.9 Cardiomyopathy, unspecified; E78.5 Hyperlipidemia, unspecified; E83.39 Other disorders of phosphorus metabolism; N18.30 Chronic kidney disease, stage 3 unspecified; I34.0 Nonrheumatic mitral (valve) insufficiency; I36.1 Nonrheumatic tricuspid (valve) insufficiency; Y92.89 Other specified places as the place of occurrence of the external cause; Z68.35 Body mass index [BMI] 35.0-35.9, adult
CPT/HCPCS: 36415; 71045; 76770; 80048; 80053; 80305; 81001; 81003; 82150; 83036; 83690; 83735; 83880; 84100; 84134; 84436; 84443; 84484; 85025; 85610; 85730; 87081; 93005; 93925; 93970; 94640; 96374; 99285; J1644; J1940; J2060; Q0092

== ENCOUNTER 2021-11-09 13:17 | Emergency (ER) | payer MEDICAID ==
[~2021-11-09] VITALS: Ht 180.3 cm; Wt 126.6 kg
[~2021-11-09 13:17] MED LIST changes: -AMOX-999 PO
[2021-11-09 13:23] VITALS: BP 105/63
--- NOTE | 2021-11-09 15:24 | NUR ---
PATIENT ELOPED FROM FACILITY. DISCHARGE INSTRUCTIONS NOT GIVEN TO PATIENT. DR. BERGERON NOTIFIED.
[2021-11-10] MEDS ORDERED: FURO40TA9 PO (05:39)
== END 2021-11-09 15:24 | disposition left against medical advice (07) ==
LOC: MED 13:17
DX: I50.9 Heart failure, unspecified (principal); R60.9 Edema, unspecified; Z53.20 Procedure and treatment not carried out because of patient's decision for unspecified reasons
CPT/HCPCS: 99281

== ENCOUNTER 2021-11-10 04:08 | Emergency (ER) | payer MEDICAID ==
[~2021-11-10] VITALS: Ht 180.3 cm; Wt 127.0 kg
[2021-11-10 04:09] VITALS: BP 132/91
--- NOTE | 2021-11-10 04:19 | NUR ---
PT TAKEN TO BED 9
--- NOTE | 2021-11-10 04:22 | NUR ---
30 Y//O MALE BIBS FROM HOME, C/O SWELLING IN BLE AND ABD. NON PITTING. PT HAS H/O CHF. DENIES SOB. PT STATES HE WIGHS ABPOUT 280# AND USUALLY WEIGHS 220#. PT ALSO STATES HE RAN OUT OF LASIX. WAS SEEN HERE LAST EVENING FOR SAME BUT LWBS. A/OX4, VSS, UNLABORED BREATHING, SPEAKING IN FULL SENTENCES; AMBULATORY W/O ASSISTANCE. HX: CHF NKA MEDS: LASIX
--- NOTE | 2021-11-10 04:29 | NUR ---
ERMD AT BEDSIDE EXAMINING PT AND PERFORMING ULTRASOUND
[2021-11-10] MEDS ORDERED: LORazepam 1 MG TAB PO ONE (04:35)
[2021-11-10] MEDS ORDERED: FUROSEMIDE 40 MG/4 ML VIAL IVP ONE (04:35)
[2021-11-10] MEDS ORDERED: FURO40TA9 PO (05:39)
[2021-11-10 05:52] VITALS: BP 126/87
--- NOTE | 2021-11-10 05:53 | NUR ---
Patient discharged with v/s stable. Written and verbal after care instructions given and explained. Patient alert, oriented and verbalized understanding of instructions. Ambulatory with steady gait. All questions addressed prior to discharge. ID band removed. Patient advised to follow up with PMD. Rx of FUROSEMIDE given. Patient educated on indication of medication including possible reaction and side effects. Opportunity to ask questions provided and answered. VSS, A/OX4, UNLABORED BREATHING, AMBULATORY, AND CALM DEMEANOR.
== END 2021-11-10 05:51 | disposition home or self-care (01) ==
LOC: MED 04:08
DX: I50.9 Heart failure, unspecified (principal); M79.89 Other specified soft tissue disorders; R19.00 Intra-abdominal and pelvic swelling, mass and lump, unspecified site; Z76.0 Encounter for issue of repeat prescription
CPT/HCPCS: 93005; 96374; 99284; C8924; J1940

== ENCOUNTER 2021-11-15 06:29 | Inpatient (IN) | payer MEDICAID ==
[~2021-11-15] VITALS: Ht 180.3 cm; Wt 122.9 kg
[2021-11-15 07:30] VITALS: BP 145/91
--- NOTE | 2021-11-15 07:34 | NUR ---
PT TO KARYN Denny
--- NOTE | 2021-11-15 08:00 | NUR ---
CUSTOMER CARE PROFESSIONAL WITH PT.
--- NOTE | 2021-11-15 08:18 | NUR ---
PT TAKEN TO XR.
--- NOTE | 2021-11-15 08:22 | NUR ---
PT TO CH A FROM XR.
[2021-11-15 08:31] LABS: BASOPHILS % (AUTO) 0.9 % (0.0-2.0); EOSINOPHILS % (AUTO) 0.9 % (0.0-4.0); HEMATOCRIT 43.2 % (36-52); HEMOGLOBIN 14.1 g/dL (12.0-18.0); LYMPHOCYTES # (AUTO) 1.7 K/uL (2.0-11.5); LYMPHOCYTES % (AUTO) 36.5 % (20.5-51.1); MEAN CORPUSCULAR HEMOGLOBIN 28 pg (27-31); MEAN CORPUSCULAR HGB CONC 33 g/dL (33-37); MEAN CORPUSCULAR VOLUME 85.5 fL (80-94); MONOCYTES # (AUTO) 0.5 K/uL (0.8-1.0); MONOCYTES % (AUTO) 11.7 % (1.7-9.3); NEUTROPHILS # (AUTO) 2.3 K/uL (1.8-7.7); PLATELET COUNT (AUTO) 229 K/uL (140-450); RED BLOOD CELL COUNT(AUTO) 5.05 MIL/uL (4.20-6.10); RED CELL DISTRIBUTION WIDTH 18.4 % (11.6-13.7); WHITE BLOOD COUNT (AUTO) 4.6 K/uL (4.8-10.8)
[2021-11-15 08:47] LABS: ALBUMIN 2.9 g/dL (3.4-5.0); ANION GAP 12.2 (8-16); CARBON DIOXIDE 36.6 mmol/L (21-32); CREATININE 2.3 mg/dL (0.6-1.3); POTASSIUM 3.8 mmol/L (3.5-5.1); TOTAL BILIRUBIN 2.9 mg/dL (0.0-1.0)
--- NOTE | 2021-11-15 08:51 | NUR ---
PT SPO2 86% ON RA, PLACED ON 2L NC AT THIS TIME. ERMD AWARE.
--- NOTE | 2021-11-15 08:54 | NUR ---
30 Y/O MALE C/O EDEMA TO BLE X3DAYS. PT STATES HE STOPPED TAKING MEDICATION, NO PCP. PAIN 6/10 AND CHEST PAIN. DENIES FEVER/CHILLS. DENIES N/V/D. PMH: CHF NKA
[2021-11-15] MEDS ORDERED: NITROGLYCERIN 2% 1 GM PKT TP ONE (08:55)
[2021-11-15] MEDS ORDERED: MAG SULF 2000 MG/WATER PREMIX 50 ML IV ONE (09:00)
--- NOTE | 2021-11-15 09:02 | NUR ---
PT W/C ASSISTED TO ER BED 1
--- NOTE | 2021-11-15 09:30 | NUR ---
30YR OLD MALE BIB SELF C/O SOB AND CP CAS LOWER EXT SWELLING X3DAYS. SOB X3DAYS HARD TO CATCH BREATHE. SP02 98% NC 2L. SPEAKING IN FULL SENTENCES. HX OF CHF. BEEN OF LASIX FOR A WEEK. CAS LOWER EXT SWELLING 2+ NO PITTING EDEMA. PT STATES LEGS ARE PAINFUL. PT ON BEDSIDE MONTOR HOB ELEVATED. SIDE RAILS UP X2 BED AT LOWEST POSITION. NKDA CHF
--- NOTE | 2021-11-15 09:30 | NUR ---
20G IV CATH PLACED L AC
[2021-11-15] MEDS ORDERED: guaiFENesin DM 200/20 MG-10 ML 10 ML UDC PO PRN (10:05)
[2021-11-15] MEDS ORDERED: POTASSIUM CHLORIDE 10 MEQ TABER PO PRN (10:05)
[2021-11-15] MEDS ORDERED: HYDROcodone/APAP 7.5/325 MG 1 TAB PO PRN (10:05)
[2021-11-15] MEDS ORDERED: ZOLPIDEM 5 MG TAB PO PRN (10:05)
[2021-11-15] MEDS ORDERED: ONDANSETRON 4 MG/2 ML VIAL IM/IVP PRN (10:05)
[2021-11-15] MEDS ORDERED: DOCUSATE SODIUM 100 MG GELCAP PO PRN (10:05)
[2021-11-15] MEDS ORDERED: ACETAMINOPHEN 325 MG TAB PO PRN (10:05)
[2021-11-15] MEDS ORDERED: METOPROLOL 25 MG TAB PO SCH ×2 (10:17→21:00)
--- NOTE | 2021-11-15 10:30 | NUR ---
ULTRA SOUND AT BEDSIDE. SECOND TROP DRAWN
--- NOTE | 2021-11-15 12:11 | NUR ---
URINE COLLECTED AND SENT TO LAB
[2021-11-15] MEDS: FUROSEMIDE 40 MG/4 ML VIAL IVP SCH ×2 (13:30→21:28)
--- NOTE | 2021-11-15 15:35 | NUR ---
PAIN LEVEL 7/10. RESTING IN BED. PENDING BED STATUS. RESP EVEN AND UNLABORED. NO CHANGE IN CONDITION
--- NOTE | 2021-11-15 16:31 | NUR ---
PT UP TO BATHROOM; STEADY GAIT
[2021-11-15] MEDS ORDERED: HYDROXYZINE HYDROCHLORIDE 25 MG TAB PO PRN (18:00)
[2021-11-15] MEDS ORDERED: HYDROXYZINE HYDROCHLORIDE 25 MG TAB ONE (18:06)
--- NOTE | 2021-11-15 20:00 | NUR ---
PT GIVEN A AN IN HIS ROOM AND INFORMED THAT HIS LASIX IS NOT DUE YET. PT RESTING IN BED. ALL PT NEEDS MEET AT THIS TIME.
--- NOTE | 2021-11-15 21:30 | NUR ---
PT GIVEN LASIX. PT RESTING IN BED. ALL PT NEEDS MEET AT THIS TIME.
--- NOTE | 2021-11-16 | NUR ---
PT RESTING IN BED. ALL PT NEEDS MEET AT THIS TIME.
--- NOTE | 2021-11-16 03:00 | NUR ---
PT RESTING IN BED. ALL PT NEEDS MEET AT THIS TIME.
--- NOTE | 2021-11-16 05:05 | NUR ---
PT GIVE LASIX. PT RESTING IN BED. ALL PT NEEDS MEET AT THIS TIME.
[2021-11-16] MEDS: FUROSEMIDE 40 MG/4 ML VIAL IVP SCH ×2 (05:09→12:20)
--- NOTE | 2021-11-16 06:55 | NUR ---
PT GIVEN ICE CHIPS. 118 CC
--- NOTE | 2021-11-16 07:20 | NUR ---
Pt report given to CAROLINE RAINEY. Transfer of care at this time.
--- NOTE | 2021-11-16 07:26 | NUR ---
Report recieved from ORTEGA Estes for transfer of care.
[2021-11-16 07:28] LABS: EOSINOPHILS % (AUTO) 0.9 % (0.0-4.0); HEMATOCRIT 43.5 % (36-52); HEMOGLOBIN 14.2 g/dL (12.0-18.0); LYMPHOCYTES # (AUTO) 1.5 K/uL (2.0-11.5); LYMPHOCYTES % (AUTO) 34.4 % (20.5-51.1); MEAN CORPUSCULAR HEMOGLOBIN 28 pg (27-31); MEAN CORPUSCULAR HGB CONC 33 g/dL (33-37); MEAN CORPUSCULAR VOLUME 85.5 fL (80-94); MONOCYTES # (AUTO) 0.5 K/uL (0.8-1.0); MONOCYTES % (AUTO) 12.4 % (1.7-9.3); NEUTROPHILS # (AUTO) 2.2 K/uL (1.8-7.7); NEUTROPHILS % (AUTO) 51.3 % (42.2-75.2); PLATELET COUNT (AUTO) 233 K/uL (140-450); RED BLOOD CELL COUNT(AUTO) 5.09 MIL/uL (4.20-6.10); RED CELL DISTRIBUTION WIDTH 19.1 % (11.6-13.7); WHITE BLOOD COUNT (AUTO) 4.4 K/uL (4.8-10.8)
[2021-11-16 07:42] LABS: ANION GAP 11.1 (8-16); CARBON DIOXIDE 36.9 mmol/L (21-32); CREATININE 2.2 mg/dL (0.6-1.3)
[2021-11-16 07:46] LABS: MAGNESIUM 2.1 mg/dL (1.8-2.4); PHOSPHORUS 4.2 mg/dL (2.5-4.9)
--- NOTE | 2021-11-16 08:06 | NUR ---
Patient will be admitted to care of Dr. Martinez. Admited to Telemetry. Will go to room 107-B. Belongings list completed. Report to ORTEGA Lowe.
[2021-11-16 08:10] VITALS: BP 120/94
--- NOTE | 2021-11-16 08:10 | NUR ---
PT ARRIVED AT UNIT VIA GURNEY, AMBULATED TO BED, TOLERATED WELL, TP ON 2LPM O2 VIA NC, NO SOB NOTED, IV TO LEFT FA 20G PATENT INTACT, SL. INITIAL ASSESSMENT DONE, ALL SAFETY PRECAUTION MET, CALL LIGHT WITHIN REACH, WILL CONTINUE TO MONITOR.
--- NOTE | 2021-11-16 08:40 | NUR ---
PATIENT HAS BEEN SCREENED AND CATEGORIZED MODERATE NUTRITION RISK. PATIENT WILL BE SEEN WITHIN 3-5 DAYS OF ADMISSION. / [address]
[2021-11-16] MEDS ORDERED: METOPROLOL SUCCINATE 50 MG TABER PO SCH (09:00)
--- NOTE | 2021-11-16 09:05 | NUR ---
DUE MEDICATION ADMINISTERD, PT TOLERATED WELL, NO DISTRESS NOTED, WILL CONTINUE TO MONITOR.
[2021-11-16] MEDS ORDERED: SACU1TAB PO (11:06)
[2021-11-16] MEDS ORDERED: FURO40TA9 PO (11:06)
[2021-11-16] MEDS ORDERED: METO25TA PO (11:08)
--- NOTE | 2021-11-16 11:10 | NUR ---
PT ON ROOM AIR, NO SOB NOTED, SATURATING WNL. WILL CONTINUE TO MONITOR.
--- NOTE | 2021-11-16 11:43 | NUR ---
DISCHARGE INSTRUCTION GIVEN, PT STATED UNDERSTANDING, PT STATED WANTED TO GET HIS NEXT DOSE OF LASIX IV FIRST BEFORE GOING HOME, WILL CONTINUE TO MONTIOR.
--- NOTE | 2021-11-16 11:50 | NUR ---
DR. SANTANA AT BEDSIDE, GAVE 'S OFFICE NUMBER FOR PT TO FOLLOW UP.
[2021-11-16 12:00] VITALS: BP 126/95
[2021-11-16] MEDS ORDERED: ACETAZOLAMIDE SOD 250 MG TAB PO SCH (12:00)
--- NOTE | 2021-11-16 12:40 | NUR ---
IV TAKEN OUT, CATH INTACT. WILL CONTINUE TO MONITOR.
--- NOTE | 2021-11-16 12:49 | NUR ---
PATIENT LEFT UNIT IN STABLE CONDITION, PT STATED LEFT HIS CAR IN ED PARKING, PT WALKED FROM FRONT LOBBY TO CAR.
[2021-11-16 14:52] LABS: APPEARANCE,URINE CLEAR (CLEAR); BILIRUBIN,URINE NEGATIVE (NEGATIVE); BLOOD, URINE TRACE-I (NEGATIVE); COLOR,URINE YELLOW (YELLOW); LEUKOCYTE ESTERASE ,URINE 2+ (NEGATIVE); NITRITE, URINE NEGATIVE (NEGATIVE); UGLUCOSE NEGATIVE (NEGATIVE)
[2021-11-16 15:13] LABS: OTHER CASTS, URINE None Seen /LPF (None Seen)
[2021-11-16 15:14] LABS: BARBITURATE, URINE NEGATIVE ng/ml (NEG <=200); BENZODIAZEPINE, URINE NEGATIVE ng/mL (NEG <=200); CANNABINOID, URINE NEGATIVE ng/mL (NEG <=50); COCAINE, URINE NEGATIVE ng/mL (NEG <=300); OPIATE, URINE POSITIVE ng/mL (NEG <=2000); PHENCYCLIDINE SCREEN,URINE NEGATIVE ng/mL (NEG <=25)
== END 2021-11-16 13:05 | disposition home or self-care (01) | DRG 194 ==
LOC: MED 06:29 → MTU 10:04
PROVIDERS: ADMIT Student in an Organized Health Care Education/Training Program; ATTEND Student in an Organized Health Care Education/Training Program
DX: I50.23 Acute on chronic systolic (congestive) heart failure (principal); N17.9 Acute kidney failure, unspecified; E44.0 Moderate protein-calorie malnutrition; R65.10 Systemic inflammatory response syndrome (SIRS) of non-infectious origin without acute organ dysfunction; I42.7 Cardiomyopathy due to drug and external agent; E80.6 Other disorders of bilirubin metabolism; R06.03 Acute respiratory distress; T50.905A Adverse effect of unspecified drugs, medicaments and biological substances, initial encounter; F15.10 Other stimulant abuse, uncomplicated; Z20.822 Contact with and (suspected) exposure to COVID-19; Z79.84 Long term (current) use of oral hypoglycemic drugs; Z79.899 Other long term (current) drug therapy; Z91.14 Patient's other noncompliance with medication regimen; Z68.37 Body mass index [BMI] 37.0-37.9, adult; Y92.89 Other specified places as the place of occurrence of the external cause
CPT/HCPCS: 36415; 36600; 71045; 76770; 80048; 80053; 80305; 81001; 82570; 82803; 83735; 83880; 84100; 84156; 84300; 84484; 85025; 87081; 87086; 93005; 96365; 96366; 99285; J1940; J3475; Q0092

== ENCOUNTER 2021-11-19 08:05 | Emergency (ER) | payer MEDICAID ==
[~2021-11-19] VITALS: Ht 180.3 cm; Wt 119.7 kg
[~2021-11-19 08:05] MED LIST changes: +METO25TA PO; -METO50TE2 PO
[2021-11-19 08:16] VITALS: BP 129/86
[2021-11-19] MEDS ORDERED: FUROSEMIDE 40 MG/4 ML VIAL IVP ONE (08:45)
[2021-11-19] MEDS ORDERED: LORazepam 1 MG TAB PO ONE (08:45)
[2021-11-19] MEDS ORDERED: KETOROLAC 15 MG/ML VIAL IVP ONE (08:45)
--- NOTE | 2021-11-19 08:45 | NUR ---
DR KAUR AT BEDSIDE FOR EVALUATION
--- NOTE | 2021-11-19 08:46 | NUR ---
30YO MALE PT C/O BILATERAL LEG PAIN . PT HAS HX OF CHF AND PRESENTS WITH BILATERAL +2 PITTING EDEMA. PT TAKES RX LASIX AND STATES HE IS COMPLIANT. PT STATES ACHING PAIN BEHIND BOTH LEGS. PT ABLE TO AMBULATE WITH STEADY GAIT. DENIES TAKING MEDICATION FOR PAIN. DENIES N/V/D , CHEST PAIN OR SOB. PT AAOX4, RESPIRATIONS EVEN AND UNLABORED. LEG POSITIONED PER COMFORT. HX: CHF NKA
--- NOTE | 2021-11-19 09:50 | NUR ---
IV removed, catheter intact and site benign. Applied folded 4x4 gauze and tape to stop bleeding.
[2021-11-19 09:55] VITALS: BP 118/71
--- NOTE | 2021-11-19 09:56 | NUR ---
Chart checked and completed. The patient's care was reviewed and supervised by Zina Houston RN.
== END 2021-11-19 09:55 | disposition home or self-care (01) ==
LOC: MED 08:05
DX: R60.0 Localized edema (principal); I50.9 Heart failure, unspecified; F15.10 Other stimulant abuse, uncomplicated
CPT/HCPCS: 96374; 96375; 99284; J1885; J1940

== ENCOUNTER 2021-11-27 04:20 | Emergency (ER) | payer MEDICAID ==
[~2021-11-27] VITALS: Ht 180.3 cm; Wt 128.8 kg
[2021-11-27 04:32] VITALS: BP 98/54
--- NOTE | 2021-11-27 04:39 | NUR ---
ambulates to bed 3
--- NOTE | 2021-11-27 04:40 | NUR ---
SOB XCOUPLE HOURS. BILAT LE EDEMA. REPORTS WEAKNESS. PT POINTED OUT HE HAS A PROTRUDING VEIN ON RT SIDE OF NECK AND STATES IT HURTS HX:CHF RX:LASIX
[2021-11-27] MEDS ORDERED: FUROSEMIDE 40 MG/4 ML VIAL IVP ONE (04:45)
--- NOTE | 2021-11-27 06:05 | NUR ---
US IN PROGRESS
[2021-11-27 06:51] LABS: BASOPHILS % (AUTO) 0.4 % (0.0-2.0); EOSINOPHILS % (AUTO) 0.4 % (0.0-4.0); HEMATOCRIT 43.6 % (36-52); LYMPHOCYTES # (AUTO) 1.6 K/uL (2.0-11.5); LYMPHOCYTES % (AUTO) 16.7 % (20.5-51.1); MEAN CORPUSCULAR HEMOGLOBIN 28 pg (27-31); MEAN CORPUSCULAR HGB CONC 32 g/dL (33-37); MEAN CORPUSCULAR VOLUME 87.5 fL (80-94); MONOCYTES # (AUTO) 0.7 K/uL (0.8-1.0); MONOCYTES % (AUTO) 7.6 % (1.7-9.3); NEUTROPHILS # (AUTO) 7.1 K/uL (1.8-7.7); NEUTROPHILS % (AUTO) 74.9 % (42.2-75.2); PLATELET COUNT (AUTO) 208 K/uL (140-450); RED BLOOD CELL COUNT(AUTO) 4.99 MIL/uL (4.20-6.10); RED CELL DISTRIBUTION WIDTH 19.4 % (11.6-13.7); WHITE BLOOD COUNT (AUTO) 9.5 K/uL (4.8-10.8)
[2021-11-27 06:59] LABS: ALBUMIN 2.6 g/dL (3.4-5.0); ANION GAP 17.8 (8-16); CREATININE 2.7 mg/dL (0.6-1.3); POTASSIUM 3.8 mmol/L (3.5-5.1); TOTAL BILIRUBIN 3.4 mg/dL (0.0-1.0)
[2021-11-27 09:25] VITALS: BP 106/72
--- NOTE | 2021-11-27 09:25 | NUR ---
Patient discharged with v/s stable. Written and verbal after care instructions given and explained. Patient verbalized understanding. Wheel Chair Assisted with to car. All questions addressed prior to discharge. Advised to follow up with PMD.
[2021-11-28] MEDS ORDERED: FURO-570 PO (04:56)
== END 2021-11-27 09:25 | disposition home or self-care (01) ==
LOC: MED 04:20
DX: I50.9 Heart failure, unspecified (principal); R60.9 Edema, unspecified
CPT/HCPCS: 36415; 71045; 80053; 83880; 84484; 85025; 93005; 93970; 96374; 99285; J1940; Q0092

== ENCOUNTER 2021-11-28 03:39 | Emergency (ER) | payer MEDICAID ==
[~2021-11-28] VITALS: Ht 180.3 cm; Wt 129.7 kg
[2021-11-28 03:49] VITALS: BP 116/90
--- NOTE | 2021-11-28 03:51 | NUR ---
Patient ambulated to bed 4.
--- NOTE | 2021-11-28 03:55 | NUR ---
Dr. Jaramillo examining patient.
--- NOTE | 2021-11-28 03:56 | NUR ---
X-Ray at bedside.
--- NOTE | 2021-11-28 04:23 | NUR ---
ERMD AT BEDSIDE EXAMINING PT
--- NOTE | 2021-11-28 04:41 | NUR ---
31 Y/O ,MALE BIBS FROM HOME, C/O shortness of breath x 1 day. Patient reported, had shortness of breath since yesterday, came to ER, Rx Lasix and DC, Patient started had shortness of breath again. PT SEEN AT [facility] YESTERDAY FOR SAME. PMHx: CHF
[2021-11-28] MEDS ORDERED: FURO-570 PO (04:56)
[2021-11-28] MEDS: FUROSEMIDE 40 MG/4 ML VIAL IVP ONE (05:22)
[2021-11-28 05:27] VITALS: BP 115/86
== END 2021-11-28 05:27 | disposition home or self-care (01) ==
LOC: MED 03:39
DX: I50.9 Heart failure, unspecified (principal); R06.02 Shortness of breath; R50.9 Fever, unspecified; Z79.899 Other long term (current) drug therapy
CPT/HCPCS: 71045; 96374; 99283; J1940; Q0092

== ENCOUNTER 2022-01-13 16:21 | Emergency (ER) | payer MEDICAID ==
[~2022-01-13] VITALS: Ht 180.3 cm; Wt 97.5 kg
[~2022-01-13 16:21] MED LIST changes: +CARV3.12 PO; +FURO-570 PO; -FURO40TA9 PO; -METO25TA PO
--- NOTE | 2022-01-13 16:30 | NUR ---
Patient BIB EMS to bed 2.
[2022-01-13 16:55] VITALS: BP 112/74
--- NOTE | 2022-01-13 17:25 | NUR ---
Natan cabral in [facility] - 01/13/22 at 1938 by FRANK Pt report given to KIRSTIE FAYE Transfer of care at this time.
[2022-01-13 17:34] LABS: BASOPHILS # (AUTO) 0.1 K/uL (0.00-0.22); BASOPHILS % (AUTO) 1.2 % (0.0-2.0); EOSINOPHILS % (AUTO) 0.9 % (0.0-4.0); HEMATOCRIT 29.4 % (36-52); HEMOGLOBIN 9.7 g/dL (12.0-18.0); LYMPHOCYTES # (AUTO) 1.7 K/uL (2.0-11.5); LYMPHOCYTES % (AUTO) 30.9 % (20.5-51.1); MEAN CORPUSCULAR HEMOGLOBIN 28 pg (27-31); MEAN CORPUSCULAR HGB CONC 33 g/dL (33-37); MEAN CORPUSCULAR VOLUME 85.3 fL (80-94); MONOCYTES # (AUTO) 0.7 K/uL (0.8-1.0); MONOCYTES % (AUTO) 12.1 % (1.7-9.3); NEUTROPHILS # (AUTO) 3.1 K/uL (1.8-7.7); NEUTROPHILS % (AUTO) 54.9 % (42.2-75.2); PLATELET COUNT (AUTO) 285 K/uL (140-450); RED BLOOD CELL COUNT(AUTO) 3.44 MIL/uL (4.20-6.10); RED CELL DISTRIBUTION WIDTH 20.3 % (11.6-13.7); WHITE BLOOD COUNT (AUTO) 5.6 K/uL (4.8-10.8)
[2022-01-13 17:56] LABS: ALBUMIN 2.8 g/dL (3.4-5.0); ANION GAP 11.9 (8-16); CARBON DIOXIDE 28.1 mmol/L (21-32); CREATININE 1.1 mg/dL (0.6-1.3); TOTAL BILIRUBIN 1.8 mg/dL (0.0-1.0)
[2022-01-13] MEDS ORDERED: FUROSEMIDE 40 MG/4 ML VIAL IVP ONE ×2 (18:45→20:45)
--- NOTE | 2022-01-13 18:50 | NUR ---
31 Y/O MALE BIBA FROM HOME C/O SOB AND EPIGASTRIC PAIN [id number]. DENIES ANY VOMITING, DIARRHEA NKA PMHl: SEIZURES, CHF
--- NOTE | 2022-01-13 18:55 | NUR ---
DR LUJAN AT BEDSIDE
[2022-01-13] MEDS ORDERED: ATA25 PO (19:05)
--- NOTE | 2022-01-13 19:25 | NUR ---
Pt report given to KIRSTIE VIVAS. Transfer of care at this time.
--- NOTE | 2022-01-13 19:27 | NUR ---
Endorsement: Received report from TEVIN VIVAS.
[2022-01-13 21:20] VITALS: BP 111/69
--- NOTE | 2022-01-13 21:20 | NUR ---
Patient discharged with v/s stable. Written and verbal after care instructions given and explained. Patient alert, oriented and verbalized understanding of instructions. Ambulatory with steady gait. All questions addressed prior to discharge. ID band removed. Patient advised to follow up with PMD. Rx of Atarax HCL given. Patient educated on indication of medication including possible reaction and side effects. Opportunity to ask questions provided and answered.
== END 2022-01-13 21:20 | disposition home or self-care (01) ==
LOC: MED 16:21
DX: R06.02 Shortness of breath (principal); F41.9 Anxiety disorder, unspecified; I50.9 Heart failure, unspecified; Z90.49 Acquired absence of other specified parts of digestive tract; Z79.899 Other long term (current) drug therapy
CPT/HCPCS: 36415; 71045; 80053; 83880; 84484; 85025; 93005; 96374; 99285; J1940

== ENCOUNTER 2022-01-15 04:45 | Emergency (ER) | payer MEDICAID ==
[~2022-01-15] VITALS: Ht 180.3 cm; Wt 100.7 kg
[2022-01-15 04:45] VITALS: BP 129/84
[~2022-01-15 04:45] MED LIST changes: +ATA25 PO
--- NOTE | 2022-01-15 04:49 | NUR ---
PT BIBA BLS ER BED 2
[2022-01-15 05:43] LABS: BASOPHILS # (AUTO) 0.1 K/uL (0.00-0.22); BASOPHILS % (AUTO) 1.4 % (0.0-2.0); EOSINOPHILS % (AUTO) 0.7 % (0.0-4.0); HEMATOCRIT 32.1 % (36-52); HEMOGLOBIN 10.5 g/dL (12.0-18.0); LYMPHOCYTES # (AUTO) 1.8 K/uL (2.0-11.5); LYMPHOCYTES % (AUTO) 33.8 % (20.5-51.1); MEAN CORPUSCULAR HEMOGLOBIN 28 pg (27-31); MEAN CORPUSCULAR HGB CONC 33 g/dL (33-37); MEAN CORPUSCULAR VOLUME 85.6 fL (80-94); MONOCYTES # (AUTO) 0.9 K/uL (0.8-1.0); MONOCYTES % (AUTO) 16.4 % (1.7-9.3); NEUTROPHILS # (AUTO) 2.6 K/uL (1.8-7.7); NEUTROPHILS % (AUTO) 47.7 % (42.2-75.2); PLATELET COUNT (AUTO) 325 K/uL (140-450); RED BLOOD CELL COUNT(AUTO) 3.75 MIL/uL (4.20-6.10); WHITE BLOOD COUNT (AUTO) 5.4 K/uL (4.8-10.8)
[2022-01-15 05:59] LABS: ALBUMIN 2.9 g/dL (3.4-5.0); ANION GAP 11.1 (8-16); CARBON DIOXIDE 30.9 mmol/L (21-32); CREATININE 1.3 mg/dL (0.6-1.3); TOTAL BILIRUBIN 1.8 mg/dL (0.0-1.0)
[2022-01-15] MEDS: DICYCLOMINE HCL LIQUID 20 MG, ALUMINUM HYD/MAG/SIMETHICONE 30 ML, LIDOCAINE VISCOUS 2% ... PO ONE ×6 (06:28→07:05)
--- NOTE | 2022-01-15 06:46 | NUR ---
Dr. Rodgers examining patient.
[2022-01-15] MEDS ORDERED: ALUMINUM HYD/MAG/SIMETHICONE 30 ML UDC ONE (06:58)
[2022-01-15] MEDS ORDERED: DICYCLOMINE 20 MG/2 ML VIAL IM ONE (07:02)
--- NOTE | 2022-01-15 07:10 | NUR ---
Vehicle Service Agent brought GI Cocktail medication medication and stated "give all medications orally." ER physician Dr. Chicas stated, "Give all pulled medication, including vial Dicyclomine orally." Addendum: 01/15/22 at 0742 by [id number] Vehicle Service Agent brought GI Cocktail medication medication and stated "give all medications orally." ER physician Dr. Chicas stated, "Ok to give all pulled medication, including vial Dicyclomine HCL orally."
--- NOTE | 2022-01-15 07:26 | NUR ---
Change of shift report given to AM shift nurse Nicole VIVAS. AM shift nurse Nicole RN verbalized understandign of report, no further questions.
--- NOTE | 2022-01-15 07:35 | NUR ---
received pt in [facility] aox4. c/o sob, hx of chf feels similar. nsr on monitor. ra 97%. denies pain or discomfort. requesting marion hennessy.
[2022-01-15] MEDS ORDERED: FUROSEMIDE 40 MG TAB PO ONE (08:30)
[2022-01-15] MEDS ORDERED: FURO-570 PO (09:44)
[2022-01-15 10:00] VITALS: BP 144/70
--- NOTE | 2022-01-15 10:18 | NUR ---
Patient discharged with v/s stable. Written and verbal after care instructions given and explained. Patient alert, oriented and verbalized understanding of instructions. Ambulatory with steady gait. All questions addressed prior to discharge. ID band removed. Patient advised to follow up with PMD. Rx of lasix given. Patient educated on indication of medication including possible reaction and side effects. Opportunity to ask questions provided and answered.
== END 2022-01-15 10:18 | disposition home or self-care (01) ==
LOC: MED 04:45
DX: I50.9 Heart failure, unspecified (principal); F15.90 Other stimulant use, unspecified, uncomplicated; Z72.89 Other problems related to lifestyle
CPT/HCPCS: 36415; 71045; 80053; 83880; 84484; 85025; 93005; 99285; J0500; Q0092

== ENCOUNTER 2023-03-18 03:24 | Emergency (ER) | payer MEDICAID ==
[~2023-03-18] VITALS: Ht 177.8 cm; Wt 95.3 kg
[2023-03-18 03:34] VITALS: BP 129/95; PULSE 103; RESP 18; O2SAT 99
[2023-03-18 04:29] VITALS: PULSE 98; TEMP 97.3
[2023-03-18] MEDS ORDERED: ATA25 PO ×2 (04:31→04:37)
[2023-03-18] MEDS ORDERED: SACU1TAB PO ×2 (04:31→04:37)
[2023-03-18] MEDS ORDERED: METO5TAB9 PO ×2 (04:31→04:37)
[2023-03-18] MEDS ORDERED: FURO-570 PO ×2 (04:31→04:37)
== END 2023-03-18 04:35 | disposition home or self-care (01) ==
LOC: MED 03:24
DX: I50.9 Heart failure, unspecified (principal); Z76.0 Encounter for issue of repeat prescription; Z79.899 Other long term (current) drug therapy
CPT/HCPCS: 99281

== ENCOUNTER 2023-06-19 21:55 | Emergency (ER) | payer SELFPAY ==
[~2023-06-19] VITALS: Ht 180.3 cm; Wt 97.5 kg
[~2023-06-19 21:55] MED LIST changes: +METO5TAB9 PO
[2023-06-19 22:26] VITALS: BP 96/84; PULSE 94; RESP 18; TEMP 97.1; O2SAT 98
[2023-06-19] MEDS ORDERED: SACU1TAB PO (23:06)
[2023-06-19] MEDS ORDERED: ATA25 PO (23:06)
[2023-06-19] MEDS ORDERED: FURO-570 PO (23:06)
[2023-06-19] MEDS ORDERED: METO5TAB9 PO (23:06)
== END 2023-06-19 23:14 | disposition home or self-care (01) ==
LOC: MED 21:55
DX: I50.9 Heart failure, unspecified (principal); Z76.0 Encounter for issue of repeat prescription; Z79.899 Other long term (current) drug therapy
CPT/HCPCS: 99281

== ENCOUNTER 2023-06-26 13:29 | Inpatient (IN) | payer MEDICAID ==
[~2023-06-26] VITALS: Ht 180.3 cm; Wt 100.7 kg
[2023-06-26 13:44] VITALS: BP 94/64; PULSE 104; RESP 19; TEMP 97.7; O2SAT 99
[2023-06-26 14:19] LABS: BASOPHILS % (AUTO) 0.9 % (0.0-2.0); EOSINOPHILS % (AUTO) 0.6 % (0.0-4.0); HEMATOCRIT 48.2 % (36-52); LYMPHOCYTES # (AUTO) 1.8 K/uL (2.0-11.5); LYMPHOCYTES % (AUTO) 37.4 % (20.5-51.1); MEAN CORPUSCULAR HEMOGLOBIN 27 pg (27-31); MEAN CORPUSCULAR HGB CONC 33 g/dL (33-37); MEAN CORPUSCULAR VOLUME 80.2 fL (80-94); MONOCYTES # (AUTO) 0.4 K/uL (0.8-1.0); MONOCYTES % (AUTO) 7.7 % (1.7-9.3); NEUTROPHILS # (AUTO) 2.6 K/uL (1.8-7.7); NEUTROPHILS % (AUTO) 53.4 % (42.2-75.2); PLATELET COUNT (AUTO) 208 K/uL (140-450); WHITE BLOOD COUNT (AUTO) 4.9 K/uL (4.8-10.8)
[2023-06-26 14:25] LABS: ANION GAP 13.7 (8-16); CALCIUM 9.2 mg/dL (8.5-10.1); CARBON DIOXIDE 25.5 mmol/L (21-32); CREATININE 1.7 mg/dL (0.6-1.3); POTASSIUM 4.2 mmol/L (3.5-5.1)
[2023-06-26] MEDS ORDERED: ACETAMINOPHEN 325 MG TAB PO PRN (15:20)
[2023-06-26] MEDS ORDERED: ONDANSETRON 4 MG/2 ML VIAL IVP PRN (15:20)
[2023-06-26] MEDS ORDERED: hydrALAZINE 20 MG/ML VIAL IVP PRN (15:25)
[2023-06-26] MEDS: ASPIRIN 81 MG TAB.CHEW PO ONE (15:27)
[2023-06-26] MEDS: FUROSEMIDE 40 MG/4 ML VIAL IVP ONE (15:28)
[2023-06-26 16:00] VITALS: BP 115/80; PULSE 96; RESP 18; TEMP 98.8; O2SAT 98; O2SAT 99
[2023-06-26] MEDS: LEVALBUTEROL 0.63 MG/3 ML NEBU INH SCH (18:00)
[2023-06-26 19:36] VITALS: PULSE 171; RESP 21; O2SAT 96
[2023-06-26 20:00] VITALS: BP 114/87; PULSE 104; PULSE 108; RESP 18; TEMP 98.4; O2SAT 96
[2023-06-26] MEDS: FUROSEMIDE 20 MG/2 ML VIAL IVP SCH (20:36)
[2023-06-27] VITALS: BP 129/89; PULSE 101; PULSE 102; RESP 19; TEMP 97.7; O2SAT 96
[2023-06-27] MEDS: HYDROcodone/APAP 5/325 MG 1 TAB TAB PO PRN (00:35)
[2023-06-27 04:00] VITALS: BP 120/94; PULSE 100; PULSE 102; RESP 18; TEMP 98.2; O2SAT 99
[2023-06-27 06:41] LABS: EOSINOPHILS # (AUTO) 0.1 K/uL (0-0.4); EOSINOPHILS % (AUTO) 1.7 % (0.0-4.0); HEMATOCRIT 45.4 % (36-52); HEMOGLOBIN 15.2 g/dL (12.0-18.0); LYMPHOCYTES # (AUTO) 2.5 K/uL (2.0-11.5); LYMPHOCYTES % (AUTO) 52.1 % (20.5-51.1); MEAN CORPUSCULAR HEMOGLOBIN 27 pg (27-31); MEAN CORPUSCULAR HGB CONC 34 g/dL (33-37); MEAN CORPUSCULAR VOLUME 79.7 fL (80-94); MONOCYTES # (AUTO) 0.3 K/uL (0.8-1.0); MONOCYTES % (AUTO) 6.7 % (1.7-9.3); NEUTROPHILS # (AUTO) 1.9 K/uL (1.8-7.7); NEUTROPHILS % (AUTO) 38.5 % (42.2-75.2); PLATELET COUNT (AUTO) 198 K/uL (140-450); RED CELL DISTRIBUTION WIDTH 17.7 % (11.6-13.7); WHITE BLOOD COUNT (AUTO) 4.9 K/uL (4.8-10.8)
[2023-06-27 06:51] LABS: ANION GAP 11.4 (8-16); CALCIUM 8.4 mg/dL (8.5-10.1); CARBON DIOXIDE 28.1 mmol/L (21-32); CREATININE 1.5 mg/dL (0.6-1.3); POTASSIUM 3.5 mmol/L (3.5-5.1)
[2023-06-27 08:00] VITALS: BP 118/81; PULSE 104; PULSE 96; PULSE 99; RESP 19; TEMP 97.3; O2SAT 96; O2SAT 99
[2023-06-27] MEDS: ASPIRIN 81 MG TAB.CHEW PO SCH (09:49)
[2023-06-27] MEDS ORDERED: FURO-570 PO ×2 (10:36→15:15)
[2023-06-27] MEDS ORDERED: POTA10TA70 PO (10:36)
[2023-06-27 12:00] VITALS: BP 132/92; PULSE 82; RESP 19; TEMP 97; O2SAT 98
[2023-06-27] MEDS: FUROSEMIDE 40 MG/4 ML VIAL IVP SCH (13:44)
[2023-06-27] MEDS ORDERED: METO25TE71 PO (15:14)
[2023-06-27 15:41] VITALS: BP 132/92; PULSE 82; RESP 19; TEMP 97
[2023-06-28] MEDS ORDERED: lisinopriL 5 MG TAB PO SCH (09:00)
[2023-06-28] MEDS ORDERED: METOPROLOL SUCCINATE 50 MG TABER PO SCH (09:00)
== END 2023-06-27 16:00 | disposition left against medical advice (07) | DRG 194 ==
LOC: MED 13:29 → MTU 15:20
PROVIDERS: ADMIT Student in an Organized Health Care Education/Training Program; ATTEND Student in an Organized Health Care Education/Training Program
DX: I50.43 Acute on chronic combined systolic (congestive) and diastolic (congestive) heart failure (principal); J96.01 Acute respiratory failure with hypoxia; N17.9 Acute kidney failure, unspecified; R65.10 Systemic inflammatory response syndrome (SIRS) of non-infectious origin without acute organ dysfunction; I27.29 Other secondary pulmonary hypertension; I42.7 Cardiomyopathy due to drug and external agent; I24.89 Other forms of acute ischemic heart disease; T43.655A Adverse effect of methamphetamines, initial encounter; N18.9 Chronic kidney disease, unspecified; Z79.899 Other long term (current) drug therapy; Y92.89 Other specified places as the place of occurrence of the external cause; Z91.148 Patient's other noncompliance with medication regimen for other reason
CPT/HCPCS: 36415; 71045; 80048; 83880; 84484; 85025; 87081; 93005; 96374; 99291; J1940; J7614

== ENCOUNTER 2023-12-04 22:02 | Emergency (ER) | payer MEDICAID ==
[~2023-12-04] VITALS: Ht 180.3 cm; Wt 96.8 kg
[~2023-12-04 22:02] MED LIST changes: -CARV3.12 PO; +METO25TE71 PO; +POTA10TA70 PO; -SACU1TAB PO
[2023-12-04 22:14] VITALS: BP 110/78; PULSE 93; RESP 14; TEMP 97.7; O2SAT 99
[2023-12-04] MEDS ORDERED: METO5TAB9 PO (23:48)
[2023-12-04] MEDS ORDERED: SACU1TAB9 PO (23:48)
[2023-12-04] MEDS ORDERED: FURO-570 PO (23:48)
[2023-12-04] MEDS ORDERED: ATA25 PO (23:48)
[2023-12-04 23:57] VITALS: BP 110/78; PULSE 93; RESP 14; TEMP 97.7; O2SAT 99
== END 2023-12-04 23:57 | disposition home or self-care (01) ==
LOC: MED 22:02
DX: I50.9 Heart failure, unspecified (principal); Z76.0 Encounter for issue of repeat prescription; Z79.899 Other long term (current) drug therapy
CPT/HCPCS: 99281

== ENCOUNTER 2024-01-13 23:05 | Emergency (ER) | payer MEDICAID ==
[~2024-01-13] VITALS: Ht 180.3 cm; Wt 97.1 kg
[~2024-01-13 23:05] MED LIST changes: +SACU1TAB9 PO
[2024-01-13 23:29] VITALS: BP 110/77; PULSE 114; RESP 16; TEMP 97.9; O2SAT 96
[2024-01-14] MEDS ORDERED: METO25TE71 PO (01:05)
[2024-01-14] MEDS ORDERED: POTA10TA70 PO (01:05)
[2024-01-14] MEDS ORDERED: SACU1TAB9 PO ×2 (01:05→01:45)
[2024-01-14] MEDS ORDERED: METO5TAB9 PO (01:05)
[2024-01-14] MEDS ORDERED: FURO40TA9 PO (01:45)
== END 2024-01-14 01:10 | disposition home or self-care (01) ==
LOC: MED 23:05
DX: I50.9 Heart failure, unspecified (principal); Z76.0 Encounter for issue of repeat prescription; Z79.899 Other long term (current) drug therapy
CPT/HCPCS: 99281